=== PATIENT | male | born 1970 | race Caucasian/White ===

== ENCOUNTER 2016-07-03 07:11 | Observation (INO) ==
[2016-07-03] MEDS ORDERED: ONDANSETRON 4 MG/2 ML VIAL IV STA (07:45)
[2016-07-03] MEDS ORDERED: ASPIRIN 325 MG TABLET PO STA (07:45)
[2016-07-03] MEDS ORDERED: NITROGLYCERIN SL 0.4 MG TABLET SL PRN (07:45)
[2016-07-03] MEDS ORDERED: NITROGLYCERIN 2% OINT 1 INCH/GM PACK TOP STA (07:45)
[2016-07-03] MEDS ORDERED: MORPHINE 2 MG/1 ML SYRINGE IV STA (07:45)
[2016-07-03] MEDS ORDERED: ENOXAPARIN 100 MG/ML SYRINGE SUBCUT STA (07:45)
--- NOTE | 2016-07-03 07:53 | Emergency Department Note ---
Arrival - Arrival Chief Complaint: Chest Pain Stated Complaint: CHEST PAINS ED Nursing Triage Note: pain in left side of chest with numbness down his left shoulder and arm for two weeks. took two ntg this am without relief. Mode of Arrival: Ambulatory Limitations: No Limitations Source: Patient, RN Notes Reviewed Time Seen by Provider: 07/03/16 07:38 - History of Present Illness HPI Narrative: Patient is a 46-year-old white male with a known history of coronary artery disease who presents today with a 1-2 day history of worsening substernal chest pain radiating to the left arm. Patient states his pain has been going on to a lesser degree for some 2 weeks. He does have associated diaphoresis and nausea associated with this chest pain. Pain is not necessarily associated with exertion. Patient is undergone multiple stent placements in [place]. He states that he is on aspirin and Plavix. He states that he has been compliant with his medications. He continues to smoke cigarettes at least a pack a day. He denies hyperlipidemia, diabetes mellitus, or hypertension. His pain is described as a same pain that he experienced prior to his most recent stent. Pain does radiate to his left arm. Onset (ago): week(s) (2) Consistency: intermittent Severity: moderate Allergies/Adverse Reactions: Allergies Allergy/AdvReac Type Severity Reaction Status Date / Time Sulfa (Sulfonamide Allergy ANAPHYLAXIS Verified 04/26/16 05:43 Antibiotics) Home Medications: Home Medications Medication Instructions Recorded Confirmed Type Aspirin [Ecotrin] 81 mg PO DAILY 04/26/16 04/26/16 History Clopidogrel [Plavix] 75 mg PO DAILY 04/26/16 04/26/16 History Ondansetron [Ondansetron Odt] 4 mg PO RT Q6H PRN #20 tab.rapdis 04/26/16 Rx Review of System - Review of System 12 point system: reviewed and no additional remarkable complaints except as stated - Review of System Constitutional: Absent: chills, fever Respiratory: Absent: cough Cardiovascular: Present: chest pain, dyspnea on exertion. Absent: palpitations , orthopnea, edema, syncope Gastrointestinal: Present: abdominal pain, nausea. Absent: vomiting, hematemesis, melena, hematochezia Medical,Surgical,& Family Hx - Medical History Cardio: History of: CAD, [place] - Surgical History Cardiac Surgeries: Sugical HX of: Cardiac Catheterization - Social History Smoking Status: Current every day smoker (1 pack per day) Have you smoked in the last 12 months: Yes Time spent discussing smoking cessation with patient: 3 to 10 minutes Lives With:: Significant Other Functional capacity: independent ambulation Exam Vital Signs: Vital Signs Temperature 97.8 F 07/03/16 07:14 Pulse Rate 82 07/03/16 07:14 Respiratory Rate 18 07/03/16 08:43 Blood Pressure 150/96 07/03/16 07:14 O2 Sat by Pulse Oximetry 100 07/03/16 07:14 GENERAL: This is a well-nourished well-developed white male, smells of cigarettes, in no apparent distress. VITAL SIGNS: Reviewed HEENT: Head is atraumatic and normocephalic. Pupils are equal round react to light. Extraocular movements are intact. Oropharynx is benign with moist mucous membranes. NECK: Neck is soft and supple without tenderness. There are no masses. There is no lymphadenopathy. LUNGS: Lungs are clear to auscultation. Chest rises symmetrically. There is no chest wall tenderness. CV: Heart is regular rate and rhythm without murmurs rubs or gallops. ABDOMEN: Abdomen is soft, nontender to palpation. There are no abdominal abnormal masses palpated. There is no organomegaly. Bowel sounds are present and active. SKIN: Skin is warm and dry. No rash. EXTREMITIES: Patient has full range of motion without tenderness. There is no pedal edema. NEUROLOGIC: Awake alert and oriented 4. Cranial nerves II through XII are grossly intact. Motor is 5 over 5 in all extremities bilaterally. Course - Consultations Consultation #1: Discussed with Dr. Tejeda. Patient will be admitted to their service. Time: 09:18 Results - Labs CBC & BMP: 07/03/16 07:51 07/03/16 07:51 Lab Results: I have reviewed the patients labs Labs: Laboratory Tests 07/03/16 07:51 INR 1.0 Laboratory Tests 07/03/16 07:51 Troponin I < 0.015 - EKG EKG results: interpreted by ERMD - Impressions EKG: Normal sinus rhythm with a rate of 69, nonspecific ST-T wave changes, incomplete right bundle branch block. - Diagnostic Findings Procedure: Chest x-ray: image reviewed by me (Hyperinflation bilaterally. No infiltrates, no cardiomegaly, no pleural effusions.) Disposition Clinical Impression: Chest pain, Coronary artery disease, Nicotine addiction Case discussed with: patient Disposition: Still a Patient Condition: Stable
[2016-07-03] MEDS ORDERED: ENOXAPARIN 80 MG/0.8 ML SYRINGE SUBCUT ONE (07:59)
[2016-07-03] MEDS ORDERED: ONDANSETRON 4 MG/2 ML VIAL ONE (07:59)
[2016-07-03] MEDS ORDERED: MORPHINE 2 MG/1 ML SYRINGE ONE (07:59)
[2016-07-03] MEDS ORDERED: ASPIRIN 325 MG TABLET ONE (07:59)
[2016-07-03] MEDS ORDERED: NITROGLYCERIN 2% OINT 1 INCH/GM PACK TOP ONE (07:59)
[2016-07-03 08:14] LABS: Basophils # 0.1 10*3/uL (0.0-0.2); Eosinophils # 0.2 10*3/uL (0.0-0.87); Eosinophils % 2.8 % (0.00-10.9); Hematocrit 43.2 VOL% (42.0-52.0); Immature Granulocytes % 0.9 %; Immature Granulocytes Absolute 0.06 #; Lymphocytes % 28.9 % (21.2-54.2); Mean Corpuscular HGB Conc 34.7 GM/DL (32-36); Mean Corpuscular Hemoglobin 31 PG (27-34); Monocytes # 0.7 10*3/uL (0.11-0.8); Monocytes % 9.8 % (1.7-12.7); Neutrophils # 3.9 10*3/uL (1.4-7.4); Neutrophils % 56.6 % (38.7-73.9); Platelet Count 283 T/CUMM (130-400); Red Cell Distribution Width 13.6 % (9.3-17.3); White Blood Count 6.8 T/CUMM (4-12)
[2016-07-03 08:23] LABS: PT Patient Result 10.5 SECS; Partial Thromboplastin Time 28.3 SECS (0-40)
--- NOTE | 2016-07-03 08:28 | XRay Report ---
XR chest 2V Indication: Chest pain Comparison: Chest x-ray dated November 28, 2007 Technique: Frontal and lateral views of the chest Findings: Heart size appears within normal limits. No focal consolidation, pleural effusion, or pneumothorax. Osseous and surrounding soft tissue structures appear grossly unchanged. Old deformity of the distal right clavicle with superior apex angulation. IMPRESSION: No acute cardiopulmonary process demonstrated. PROCEDURE INTERPRETED AT [facility] DEPARTMENT OF RADIOLOGY Final Report Signed by: Dr Humphrey Allen
[2016-07-03 08:49] LABS: Albumin 4.4 G/DL (3.4-5.0); Bilirubin,Total 0.7 MG/DL (0.2-1.0); Calcium 9.3 MG/DL (8.5-10.1); Osmolality,Calculated 279.1 MOS/KG (273-304); Potassium 4.1 MMOL/L (3.5-5.1); Total Protein 7.6 G/DL (6.4-8.3)
--- NOTE | 2016-07-03 09:43 | EKG Report ---
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
[2016-07-03] MEDS ORDERED: MAGNESIUM SULF RIDER 4 GM in PREMIX 1 EACH IV PRN (10:32)
[2016-07-03] MEDS ORDERED: BISACODYL 5 MG TABLET PO PRN (10:32)
[2016-07-03] MEDS ORDERED: POTASSIUM CHLORIDE 20 MEQ TABLET PO PRN (10:32)
[2016-07-03] MEDS ORDERED: MAGNESIUM SULF RIDER 2 GM in PREMIX 1 EACH IV PRN ×2 (10:32→19:15)
[2016-07-03] MEDS ORDERED: ONDANSETRON 4 MG/2 ML VIAL IV PRN (10:32)
[2016-07-03] MEDS ORDERED: ZALEPLON 5 MG CAPSULE PO PRN (10:32)
[2016-07-03] MEDS ORDERED: ACETAMINOPHEN 325 MG TABLET PO PRN (10:32)
[2016-07-03] MEDS ORDERED: NICOTINE 21 MG/24 HR PATCH TRANSDERM PRN (10:32)
--- NOTE | 2016-07-03 11:13 | Cardiology History & Physical ---
Assessment and Plan - Time spent with patient Time spent with patient: Greater than 30 minutes (Due to assessment, plan, and documentation) Time spent discussing smoking cessation with patient: 3 to 10 minutes (1) Chest pain Status: Acute Assessment and plan: 46 y/o WM c hx of CAD, HLD, tobacco and cannabis abuse. Previous hx of cocaine use. Not currently on PPI, statin, BB, MAJOR or ARB. -Chest pain - Admit to telemetry unit. Will plan for stress testing today. Keep NPO for now. -Continue Lovenox BID. -Hx CAD - Will start statin and beta arjun. Check FLP in AM. -Drug abuse- Check UDS. -Obtain previous records from machine adjuster leader Dr. Razo at [facility] in [place], [place]. Further plan and addendum to follow by Dr. Tejeda. Current Visit: Yes (2) Coronary artery disease Status: Chronic Current Visit: Yes (3) Dyslipidemia Status: Chronic Current Visit: Yes (4) Old anteroseptal myocardial infarction Status: Chronic Current Visit: Yes (5) S/P coronary artery stent placement Status: Chronic Current Visit: Yes (6) Cannabis abuse Status: Chronic Current Visit: Yes (7) History of cocaine use Status: Chronic Current Visit: Yes (8) Nicotine addiction Status: Chronic Current Visit: Yes History of Present Illness Chief complaint: Chest pain History of present illness: TESTER COMPRESSED GASES: DR. RAZO AT [facility] IN [place], [place] Mr. Gamino has been seen in the emergency department by myself and Dr. Tejeda. Mr. Gamino is a 46 year old male who is routinely followed by Dr. Razo, a machine adjuster leader at [facility] in [place]. he has a history of coronary artery disease hyperlipidemia, gastroesophageal reflux disease, tobacco abuse, cannabis use, prior cocaine use. He has been smoking since age 12. He reports he has cut down from 3 packs per day to 1 pack per day. He has no history of hypertension, diabetes, stroke, or TIA. He does report chronic sinus issues with recent sinus infection within the past week. He presented to the emergency room today with complaints of chest pain that has been ongoing for the past 2-3 weeks, with more frequent and intense episodes. He tells me he has had intermittent episodes of chest discomfort that lasts from a few seconds to a few minutes over the past several weeks. This pain is located in his left chest wall and radiates to his left axilla and will go into the middle of his back. He says he notices these episodes mostly when he is exerting himself at work, but will occasionally notice them at rest. He reports he does not have these episodes every day but will sometimes have 3-4 episodes on the days that these occur. He reports this is the same feeling he has had every time he has had stents placed. He can identify no aggravating or alleviating factors. He reports he did take 2 nitroglycerin this morning prior to arrival at the hospital but this did not help very much. He does report having a headache from the nitroglycerin. He has associated symptoms of shortness of breath, diaphoresis, and nausea. He notes he has recently had nausea separately from his episodes of chest pain, especially in the morning with associated diarrhea. He reports occasionally feeling dizzy when his episodes of chest pain occur. He denies palpitations, lightheadedness. His girlfriend is at the bedside and reports approximately 1 month ago he "passed out" for a couple seconds prior to getting in the shower. She tells me she caught him before he fell to the ground. He denies loss of bowel or bladder function and reports he did not injure himself or go to the hospital when this occurred. Mr. Gamino is status post anterior septal wall [place] May 23, 2005 in [place]. At that time he underwent stenting of the LAD with a 3.5 x 20 mm Cypher stent and stenting of the second diagonal with a 3 x 13 mm Cypher stent on May 24, 2015. She tells me that 11 months after that episode he went to the hospital at [place] and required an additional stent by Dr. Mcleod. He reports his last heart cath was in November 2015 and he tells me that they had to open up a stent that was previously placed. We will try to obtain these records. Dr. Tejeda to follow with further recommendations. Home Medications Medication Instructions Recorded Confirmed Type Aspirin [Ecotrin] 81 mg PO DAILY 04/26/16 04/26/16 History Clopidogrel [Plavix] 75 mg PO DAILY 04/26/16 04/26/16 History Ondansetron [Ondansetron Odt] 4 mg PO RT Q6H PRN #20 tab.rapdis 04/26/16 Rx Allergies Allergy/AdvReac Type Severity Reaction Status Date / Time Sulfa (Sulfonamide Allergy ANAPHYLAXIS Verified 04/26/16 05:43 Antibiotics) Review of systems: - Constitutional: Present:fever(s), As per HPI. Absent: anorexia, chills, daytime sleepiness, excessive sweating, frequent falls, headache(s), increased appetite, lethargy, malaise, night sweats, stops breathing during sleep, weakness, weight gain, weight loss, fatigue. - EENT Eyes: Present: As per HPI. Absent: blurry vision, diplopia, loss of vision Ears: Present: As per HPI. Absent: decreased hearing, ear discharge, ear pain Nose, mouth and throat: Present: dysphagia, nasal congestion, As per HPI. Absent : epistaxis, headache(s), hoarseness, lip swelling, neck mass, neck pain, sinus pressure, sore throat, throat swelling, tongue swelling, vertigo - Cardiovascular: Present: chest pain at rest, chest pain with activity, dyspnea , dyspnea on exertion, as per HPI. Absent: edema, claudication, diaphoresis, radiating jaw, neck or arm pain, lightheadedness, orthopnea, palpitations, PND - Respiratory: Present: dyspnea, dyspnea on exertion, snoring, paroxysmal nocturnal dyspnea, as per HPI. Absent: cough, hemoptysis, wheezing, pain on inspiration - Gastrointestinal: Present: nausea, diarrhea, heartburn, As per HPI. Absent: abdominal pain, bloating, change in bowel habits, constipation, hematemesis, hematochezia, loose stools, melena, vomiting - Genitourinary: Present: As per HPI. Absent: difficulty urinating, dysuria, flank pain, hematuria, nocturia, urinary frequency, urinary incontinence - Musculoskeletal: Present: back pain, As per HPI. Absent: arthralgias, joint swelling, limited range of motion, muscle cramps, muscle weakness, myalgias - Neurological: Present: dizziness, syncope, As per HPI. Absent: abnormal gait, abnormal speech, behavioral changes, confusion, convulsions, disequilibrium, focal weakness, frequent falls, headache(s), memory loss, numbness, paresthesias , radicular pain, tremor(s) - Psychiatric: Present: As per HPI. Absent: anxiety, confusion, depression, panic attacks - Endocrine: Present: As per HPI. Absent: cold intolerance, fatigue, heat intolerance, polydipsia, polyphagia - Hematologic/Lymphatic: Present: As per HPI. Absent: easy bleeding, easy bruising, lymphadenopathy Medical,Surgical,& Family Hx - Medical History Cardio: History of: CAD, [place] Psychological: History of: Psychiatric/Substance Abuse Tx (History of cocaine and cannabis use) Endocrine: History of: Dyslipidemia - Surgical History Cardiac Surgeries: Sugical HX of: Cardiac Catheterization - Family History Family History: Reports;: Family Diabetes, Family Hypertension - Social History Smoking Status: Current every day smoker (1 pack per day) Have you smoked in the last 12 months: Yes Time spent discussing smoking cessation with patient: 3 to 10 minutes Frequency of Alcohol Use: Frequently (Drinks 2 beers daily) Type of Drug Use: Cocaine (History of cocaine use.), Marijuana (Smokes 1 joint daily) Marital Status: Single Lives With:: Significant Other Functional capacity: independent ambulation Cardiology Physical Exam - Constitutional Vitals: Vital Signs Temp Pulse Resp BP Pulse Ox 97.8 F 74 18 124/90 98 07/03/16 07:14 07/03/16 10:30 07/03/16 10:30 07/03/16 10:30 07/03/16 10:30 Intake and Output 07/02/16 07/03/16 07/03/16 22:59 06:59 14:59 Other: Weight 175 lb Patient Weight 07/04/16 06:59 Weight 175 lb Exam: General appearance: Pleasant and cooperative. Normal weight, no acute distress. - Head Head exam: Present: normal inspection, normocephalic, atraumatic. Absent: hematoma, laceration - Eye Eye exam: Present: EOMI. Absent: conjunctival injection, nystagmus, periorbital swelling, scleral icterus, laceration to eyelids Pupils: Present: PERRL. Absent: constricted, dilated, fixed, irregular, unequal - ENT ENT exam: Present: normal exam, normal external ear exam - Neck Neck exam: Present: normal inspection. Absent: lymphadenopathy, meningismus, tenderness, thyromegaly - Respiratory Respiratory exam: Present: clear to auscultation bilaterally. Absent: accessory muscle use, chest wall tenderness, no rales, rhonchi, or wheezes. - Cardiovascular Cardiovascular exam: Present: regular rate and rhythm. Absent: carotid bruit, gallop, JVD, rubs, murmur - GI/Abdominal GI/Abdominal exam: Present: normal bowel sounds, soft. Absent: distended, firm , guarding, hernia, mass, tenderness, rebound. - Extremities Exam Extremities exam: Present: normal inspection, normal capillary refill. Upper extremity pulses 2+. Lower extremity pulses 2+. Absent: calf tenderness, edema - Back Exam Back exam: Present: normal inspection. Absent: muscle spasm, vertebral tenderness - Neurological Exam Neurological exam: Present: alert, oriented X3, grossly intact without resting or essential tremor - Psychiatric Psychiatric exam: Present: normal affect, normal mood - Skin Skin exam: Present: normal color, warm, dry, intact. Absent: cyanosis, diaphoretic, rash, urticaria Result/EKG - Labs CBC & BMP: 07/03/16 07:51 07/03/16 07:51 Lab Results: I have reviewed the past 24 hour labs Labs: Laboratory Results - last 24 hr 07/03/16 07/03/16 07/03/16 07:51 07:51 07:51 WBC 6.8 RBC 4.80 Hgb 15.0 Hct 43.2 MCV 90.0 MCH 31 MCHC 34.7 RDW 13.6 Plt Count 283 MPV 10.0 Neut % (Auto) 56.6 Lymph % (Auto) 28.9 [place] % (Auto) 9.8 Eos % (Auto) 2.8 Baso % (Auto) 1.0 H Neut # (Auto) 3.9 Lymph # (Auto) 2.0 [place] # (Auto) 0.7 Eos # (Auto) 0.2 Baso # (Auto) 0.1 Immature Gran % 0.9 Nucleated RBC % 0.0 Immature Gran # 0.06 Nucleated RBCs # 0.00 INR 1.0 PT Patient/Control Mix 10.5 Circ Anticoag PTT 28.3 Sodium 142 Potassium 4.1 Chloride 109 H Carbon Dioxide 27 Anion Gap 10.1 BUN 6 L Creatinine 1.10 GFR Calculation 92 BUN/Creatinine Ratio 5.00 L Glucose 88 Calculated Osmolality 279.1 Calcium 9.3 Total Bilirubin 0.70 AST 15 ALT 21 Alkaline Phosphatase 69 Troponin I Total Protein 7.6 Albumin 4.4 Globulin 3.2 Albumin/Globulin Ratio 1.3 07/03/16 07:51 WBC RBC Hgb Hct MCV MCH MCHC RDW Plt Count MPV Neut % (Auto) Lymph % (Auto) [place] % (Auto) Eos % (Auto) Baso % (Auto) Neut # (Auto) Lymph # (Auto) [place] # (Auto) Eos # (Auto) Baso # (Auto) Immature Gran % Nucleated RBC % Immature Gran # Nucleated RBCs # INR PT Patient/Control Mix Circ Anticoag PTT Sodium Potassium Chloride Carbon Dioxide Anion Gap BUN Creatinine GFR Calculation BUN/Creatinine Ratio Glucose Calculated Osmolality Calcium Total Bilirubin AST ALT Alkaline Phosphatase Troponin I < 0.015 Total Protein Albumin Globulin Albumin/Globulin Ratio - Diagnostic Findings Procedure: Chest x-ray: report reviewed by me (No acute cardiopulmonary process demonstrated.) - EKG EKG results: interpreted by me, sinus rhythm
--- NOTE | 2016-07-03 12:37 | Event Note ---
Patient underwent nuclear stress testing. He achieved 98% of predicted target heart rate without difficulty. No chest pain, heaviness or tightness. No arrhythmia noted. [address] depression noted in V6 when he achieved 98% of predicted target heart rate (172 bpm). Hypertension prior to and during the procedure. Improved at rest to 170/98. He has not had his medications today. Now, to nuclear medicine for completion of final scan. Dr. Salinas to read, interpreted and advise. Having formed the patient he should not eat or drink until we have final results should the patient need a cardiac catheterization he may be eligible for scheduling for today. If his films are normal, he may eat later this afternoon
--- NOTE | 2016-07-03 13:56 | EKG Report ---
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
[2016-07-03] MEDS: CLOPIDOGREL 75 MG TABLET PO SCH (14:17)
[2016-07-03] MEDS: PANTOPRAZOLE 40 MG TABLET PO SCH (15:55)
[2016-07-03] MEDS: METOPROLOL TARTRATE 25 MG TABLET PO SCH ×2 (15:56→22:05)
[2016-07-03] MEDS ORDERED: ALPRAZolam 0.5 MG TABLET PO PRN (17:35)
[2016-07-03 18:11] LABS: Barbiturates Screen,Urine Negative (Negative); Benzodiazepines Screen,Urine Negative (Negative); Cannabinoid Screen,Urine Positive (Negative); Opiate Screen,Urine Positive (Negative); Phencyclidine Screen,Urine Negative (Negative)
[2016-07-03] MEDS ORDERED: POTASSIUM CHLORIDE RIDER 10 MEQ in PREMIX 1 EACH IV PRN (19:15)
--- NOTE | 2016-07-03 19:19 | History and Physical Update ---
Sedation H&P Update - History and Physical H&P was reviewed, the patient examined and there: are no changes in the patients condition since last H&P was completed. - Dictation Physical: refer to H&P completed by admitting physician - Physical Exam Mental Status: alert and oriented Heart: regular rate and rhythm Lung: clear to auscultation Abdomen: within normal limits Vitals: within normal limits - Sedation Plan for Sedation: minimal Patient Consent: Procedure disscussed with patient and patinet has consented. ( Left heart cath and possible PTCA or stent were discussed with the patient. The risk of the procedure include but are not limited to a small risk of injury to the vessel, abnormal heart rhythm, stroke, heart attack, need for emergent surgery, contrast reaction, restenosis, or . The patient voices understanding, agrees with the plan, and desires to proceed with the heart catheterization.), Risks and benefits were discussed with patient,including infection,, bleeding,injury to surrounding structures, seizure, temporary nerve , Patient understands and accepts potential risks/benefits and agrees to, proceed. ASA Class: II Airway Assessment: Class II: Soft palate, uvula, fauces visible
--- NOTE | 2016-07-03 20:35 | Nuclear Medicine Report ---
EXERCISE TREADMILL STRESS TEST REPORT Stress test interpreted by Dr. Pop Tejeda. INDICATION: Chest pain, prior [place], PCI. PROCEDURE: At rest, 10 mCi of 99Technetium labeled Sestamibi was injected and rest images were obtained. The patient then exercised according to the Arvind treadmill stress protocol. At peak stress, 30 mCi of 99Technetium labeled Sestamibi was injected and post stress images were reviewed. FINDINGS: At rest, the heart rate is 58 beats per minute, sinus; blood pressure is 125/85 mmHg. QRS in V1 through V3. No significant ST-T changes. The patient exercised for 10 minutes 17 seconds, achieving a peak heart rate of 172 beats per minute, 98% of the predicted maximum heart rate, at 10.9 METS. The blood pressure gordo to 198/98 mmHg. At peak stress, ascending no significant ST depression was noted, with few PVCs. There was no chest pain. Rest and post stress gated and perfusion images were reviewed. There are no significant motion artifacts. The end-diastolic volume is 164 cc, the end- systolic volume is 93 cc. The calculated left ventricular ejection fraction is 40%. There is borderline diffuse hypokinesis, with more prominent hypokinesia. Perfusion images showed a moderate sized area in the anterior/apical region of mildly decreased activity at rest, with moderately decreased activity post stress. This is consistent with old myocardial disease with superimposed ischemia. CONCLUSIONS: 1. CLINICALLY AND ELECTRICALLY NEGATIVE MAXIMUM STRESS TEST. THE ARVIND TREADMILL STRESS SCORE IS 10. 2. MILDLY DILATED LEFT VENTRICLE WITH MILDLY DEPRESSED SYSTOLIC FUNCTION, WITH ANTERIOR/APICAL MYOCARDIAL DISEASE, WITH SUPERIMPOSED ISCHEMIA. 3. THIS IS A MODERATE RISK TEST. Procedure performed and interpreted at [facility] Department of Radiology. [facility]
[2016-07-03] MEDS ORDERED: ATORVASTATIN 40 MG TABLET PO SCH (21:00)
[2016-07-03] MEDS: ENOXAPARIN 80 MG/0.8 ML SYRINGE SUBCUT SCH (22:06)
[2016-07-03] MEDS: SODIUM CHLORIDE 0.9% 1,000 ML IV SCH (22:16)
[2016-07-04 05:38] LABS: Basophils # 0.1 10*3/uL (0.0-0.2); Basophils % 0.9 % (0.0-0.8); Eosinophils # 0.3 10*3/uL (0.0-0.87); Eosinophils % 3.3 % (0.00-10.9); Hematocrit 41.7 VOL% (42.0-52.0); Hemoglobin 14.7 GM/DL (14.0-18.0); Immature Granulocytes % 1.1 %; Immature Granulocytes Absolute 0.09 #; Lymphocytes # 3.2 10*3/uL (1.4-4.0); Lymphocytes % 38.8 % (21.2-54.2); Mean Corpuscular HGB Conc 35.3 GM/DL (32-36); Mean Corpuscular Hemoglobin 31 PG (27-34); Mean Corpuscular Volume 87.8 FL (87-102); Mean Platelet Volume 10.5 FL (9.6-12.0); Monocytes # 0.7 10*3/uL (0.11-0.8); Neutrophils # 3.9 10*3/uL (1.4-7.4); Neutrophils % 47.9 % (38.7-73.9); Platelet Count 294 T/CUMM (130-400); Red Blood Count 4.75 MC/CUMM (3.8-5.5); Red Cell Distribution Width 13.6 % (9.3-17.3); White Blood Count 8.2 T/CUMM (4-12)
[2016-07-04] MEDS ORDERED: DIAZEPAM 5 MG TABLET PO ONE ×2 (06:00→08:00)
[2016-07-04] MEDS ORDERED: diphenhydrAMINE CAP 25 MG CAPSULE PO ONE ×2 (06:00→08:00)
[2016-07-04 06:06] LABS: Calcium 8.7 MG/DL (8.5-10.1); Magnesium 1.9 MG/DL (1.8-2.4); Osmolality,Calculated 281.1 MOS/KG (273-304); Potassium 4.3 MMOL/L (3.5-5.1); Risk Ratio 3.89
[2016-07-04] MEDS: PANTOPRAZOLE 40 MG TABLET PO SCH (07:59)
[2016-07-04] MEDS: CLOPIDOGREL 75 MG TABLET PO SCH (07:59)
[2016-07-04] MEDS: METOPROLOL TARTRATE 25 MG TABLET PO SCH (08:00)
[2016-07-04] MEDS: ENOXAPARIN 80 MG/0.8 ML SYRINGE SUBCUT SCH (08:02)
[2016-07-04] MEDS: SODIUM CHLORIDE 0.9% 1,000 ML IV SCH (08:03)
[2016-07-04] MEDS ORDERED: LIDOCAINE 1% 20 ML VIAL ONE (08:23)
[2016-07-04] MEDS ORDERED: MEPERIDINE 25 MG/1 ML VIAL ONE (08:43)
[2016-07-04] MEDS ORDERED: MIDAZOLAM 2 MG/2 ML VIAL ONE (08:43)
[2016-07-04] MEDS ORDERED: diphenhydrAMINE 50 MG/1 ML VIAL ONE (08:50)
[2016-07-04] MEDS ORDERED: methylPREDNISolone SOD SUC 125 MG/2 ML VIAL ONE (08:50)
[2016-07-04] MEDS ORDERED: FAMOTIDINE 20 MG/2 ML VIAL IV ONE (08:56)
[2016-07-04] MEDS ORDERED: ASPIRIN EC 81 MG TABLET PO SCH (09:00)
[2016-07-04] MEDS ORDERED: SODIUM CHLORIDE 0.9% 1,000 ML IV SCH (09:47)
--- NOTE | 2016-07-04 09:52 | Operative Note ---
Date of procedure: 07/04/16 Procedure Preformed: Left heart cath Coronary angiography Left ventriculography Angio-Seal of the right femoral artery-successful Surgeon / Physician: Arsh Nelson Tooth Cutter Pinion: Latonia De La Cruz Post-op diagnosis: same (History of prior WA, prior coronary stent of the LAD, diagonal and then re-stent of the LAD in about 6. He presents with chest pain. He underwent stress testing and had evidence of some infarction some ischemia in the LAD territory. He is referred for diagnostic catheterization and possible intervention.) Findings: Impression: Occluded ostium of a diagonal of the LAD with BERNIE grade I collaterals, left to left-presumably, by the patient's history, this occurred back in 6 when the interventionalists at that time at [facility] stented across this diagonal to benefit the LAD but apparently did close off the diagonal; alternatively, it could have closed recently. There are some collaterals. Moderate disease of the proximal LAD just prior to the stent-30-40%-in some views a mach effect makes it appear worse but the best views showed no significant narrowing at that site Mild disease in circumflex and right coronary Widely patent LAD stent/stents--has appearance of some stents within the stent Moderately severe global left ventricular systolic dysfunction, LVEF is about 30 %. There is global hypokinesis, not one regional area which appears worse. 2-3+ LV enlargement Normal LVEDP, 9 mmHg Angio-Seal of the right femoral artery-successful Plan/recommendations: The patient will have risk factors optimized. The patient will be on antiplatelet medications to include aspirin indefinitely and Plavix for at least a year. It is apparent that he is ischemia seen on the treadmill/MPI is due to the occluded diagonal with collaterals. There probably is some scarring in that area, also. If his chest pain was at rest, it may or may not be related to this occluded diagonal, unless he occluded acutely. I will defer to Dr. Salinas regarding assessing the clinical scenario. Whatever the case, it is for medical therapy. With his LV systolic dysfunction, EF 30% and LV enlargement, I will change the metoprolol to low-dose carvedilol, which would be better for his LV systolic dysfunction, post WA. I will also add a low -dose of an MAJOR inhibitor. We will see how he tolerates these and adjust as tolerated. He is already on a statin, aspirin, and Plavix. Discussion was had with him about trying to taper discontinue smoking. He has cut down to less than 1 pack per day. I encouraged him to try to become nicotine free in the near future. Follow-up will be scheduled. Addenda: I saw the patient post-cath. the groin puncture site and distal pulse are stable. vital signs are stable and the patient will be observed closely overnight. Specimens: none sent Estimated blood loss: minimal Condition: stable Anesthesia: local, conscious sedation Disposition: floor
[2016-07-04] MEDS ORDERED: CARVEDILOL 6.25 MG TABLET PO SCH (10:00)
[2016-07-04] MEDS: CAPTOPRIL 6.25 MG TABLET PO SCH ×2 (10:33→15:40)
--- NOTE | 2016-07-04 13:01 | Cardiology Operative Report ---
Date of Procedure:: 07/04/16 Post-op diagnosis: same (History of prior AR, prior coronary stent of the LAD, diagonal and then re-stent of the LAD in about 6. He presents with chest pain. He underwent stress testing and had evidence of some infarction some ischemia in the LAD territory. He is referred for diagnostic catheterization and possible intervention.) Procedure: Date of procedure: 07/04/16 Procedure Preformed: Left heart cath Coronary angiography Left ventriculography Angio-Seal of the right femoral artery-successful Surgeon / Physician: Arsh Nelson Front Office Java Developer: Latonia De La Cruz Post-op diagnosis: same (History of prior AR, prior coronary stent of the LAD, diagonal and then re-stent of the LAD in about 6. He presents with chest pain. He underwent stress testing and had evidence of some infarction some ischemia in the LAD territory. He is referred for diagnostic catheterization and possible intervention.) procedure: The patient was prepped and draped in usual manner. Entered the right femoral artery via the Seldinger technique. I used a sheath and then used a JL4 and engaged left coronary. Multiple views were taken. I then exchanged for a JR4. Multiple views of the right coronary were taken. I then exchanged for an angled pigtail. I crossed the valve. Left ventricular end-diastolic pressures measured. Left ventriculography was done. Left ventricle pullback was done. The catheters were then removed from the patient. Please see the cath data sheets for the details of catheters used. Complications: None Hemodynamic data: LVEDP was 9 mmHg. Angiographic data: The left main coronary was large and had minimal luminal irregularities. The left anterior descending artery was large and had some proximal overlapping stents. There was also stent which appeared to go into a diagonal. This was flush occluded proximally at the ostium of the diagonal. Otherwise LAD stent had 10% residual disease. Possible stent there was a 30-40% eccentric narrowing. Otherwise her minimal luminal irregularities distally. The left circumflex system was moderate to large. there are minimal luminal irregularities in the circumflex The right coronary artery was small to medium in size, dominant vessel with the PDA. there were minimal luminal irregularities. PENA left ventriculography revealed abnormal global systolic function. Overall ejection fraction was about 30%. There was global hypokinesis. There was 2-3+ LV enlargement. There is no significant mitral regurgitation. Angiogram of the right femoral artery revealed the puncture site to be in a large vessel, above the bifurcation. It was suitable for Angio-Seal. Findings: Impression: Occluded ostium of a diagonal of the LAD with BERNIE grade I collaterals, left to left-presumably, by the patient's history, this occurred back in 6 when the interventionalists at that time at [place] stented across this diagonal to benefit the LAD but apparently did close off the diagonal; alternatively, it could have closed recently. There are some collaterals. Moderate disease of the proximal LAD just prior to the stent-30-40%-in some views a mach effect makes it appear worse but the best views showed no significant narrowing at that site Mild disease in circumflex and right coronary Widely patent LAD stent/stents--has appearance of some stents within the stent Moderately severe global left ventricular systolic dysfunction, LVEF is about 30 %. There is global hypokinesis, not one regional area which appears worse. 2-3+ LV enlargement Normal LVEDP, 9 mmHg Angio-Seal of the right femoral artery-successful Plan/recommendations: The patient will have risk factors optimized. The patient will be on antiplatelet medications to include aspirin indefinitely and Plavix for at least a year. It is apparent that he is ischemia seen on the treadmill/MPI is due to the occluded diagonal with collaterals. There probably is some scarring in that area, also. If his chest pain was at rest, it may or may not be related to this occluded diagonal, unless he occluded acutely. I will defer to Dr. Salinas regarding assessing the clinical scenario. Whatever the case, it is for medical therapy. With his LV systolic dysfunction, EF 30% and LV enlargement, I will change the metoprolol to low-dose carvedilol, which would be better for his LV systolic dysfunction, post AR. I will also add a low -dose of an MAJOR inhibitor. We will see how he tolerates these and adjust as tolerated. He is already on a statin, aspirin, and Plavix. Discussion was had with him about trying to taper discontinue smoking. He has cut down to less than 1 pack per day. I encouraged him to try to become nicotine free in the near future. Follow-up will be scheduled. Addenda: I saw the patient post-cath. the groin puncture site and distal pulse are stable. vital signs are stable and the patient will be observed closely overnight. Specimens: none sent Estimated blood loss: minimal Condition: stable Anesthesia: local, conscious sedation Disposition: floor Additional CC's: Pop Tejeda Anesthesia: local, minimal conscious sedation Surgeon / Physician: Arsh Nelson Front Office Java Developer: other Estimated blood loss: minimal Specimens: none sent Condition: stable Disposition: floor
[2016-07-04] MEDS ORDERED: HYDROmorphone 2 MG/1 ML VIAL IV PRN (14:07)
--- NOTE | 2016-07-04 16:13 | Discharge Summary ---
Hospital Course - Hospital Course Hospital Course: Mr. Gamino, 46-year-old male, was admitted through the emergency department at [facility] July 03, 2016. History of known coronary artery disease. He arrived with complaints of chest pain. His cardiac biomarkers were negative. He underwent Cardiolite stress testing which revealed abnormal results. Patient, he underwent catheterization followed by Dr. Nelson July 04, 2016 with the following impression noted: Impression: Occluded ostium of a diagonal of the LAD with BERNIE grade I collaterals, left to left-presumably, by the patient's history, this occurred back in when the interventionalists at that time at [place] stented across this diagonal to benefit the LAD but apparently did close off the diagonal; alternatively, it could have closed recently. There are some collaterals. Moderate disease of the proximal LAD just prior to the stent-30-40%-in some views a mach effect makes it appear worse but the best views showed no significant narrowing at that site Mild disease in circumflex and right coronary Widely patent LAD stent/stents--has appearance of some stents within the stent Moderately severe global left ventricular systolic dysfunction, LVEF is about 30 %. There is global hypokinesis, not one regional area which appears worse. 2-3+ LV enlargement Normal LVEDP, 9 mmHg Angio-Seal of the right femoral artery-successful Plan/recommendations: The patient will have risk factors optimized. The patient will be on antiplatelet medications to include aspirin indefinitely and Plavix for at least a year. It is apparent that he is ischemia seen on the treadmill/MPI is due to the occluded diagonal with collaterals. There probably is some scarring in that area, also. If his chest pain was at rest, it may or may not be related to this occluded diagonal, unless he occluded acutely. With his LV systolic dysfunction, EF 30% and LV enlargement, I will change the metoprolol to low-dose carvedilol, which would be better for his LV systolic dysfunction, post ME. I will also add a low-dose of an MAJOR inhibitor. We will see how he tolerates these and adjust as tolerated. He is already on a statin, aspirin, and Plavix. Discussion was had with him about trying to taper discontinue smoking, marijuana and all illicit drugs. He verbalized understanding. Also, patient may be a candidate for ICD implantation in his future. Unfortunately, he does not have insurance discussed the importance of obtaining insurance and/or disability benefits. Antibiotics have already started this process and oriented this at present. He is anxious for release home and he is being discharged home today in stable condition. Again, will maximize his medications and reevaluate with echocardiogram in 90 days. Patient has previously seen a physician in [place] for his cardiology needs but prefers to transfer to Dr. Tejeda's service here in [place]. I will arrange for a 2-3 week follow-up with Dr. Tejeda. Discharge medications will include the following Aspirin 81 mg orally daily Plavix 75 mgs orally daily Atorvastatin 40 mg orally each evening Coreg 3.125 mg orally twice daily Captopril 6.5 mg orally 3 times daily - Time spent with patient Time with patient DS: Greater than 30 minutes Time spent discussing smoking cessation with patient: more than 10 minutes Diagnosis - Discharge Diagnosis (1) Hypertension Status: Chronic (2) Ischemic cardiomyopathy Status: Chronic (3) Chest pain Status: Chronic (4) Cannabis abuse Status: Chronic (5) Coronary artery disease Status: Chronic (6) Dyslipidemia Status: Chronic (7) History of cocaine use Status: Chronic (8) Nicotine addiction Status: Chronic (9) Old anteroseptal myocardial infarction Status: Chronic (10) S/P coronary artery stent placement Status: Chronic Specialty Discharge - Follow Up or Referrals Follow up with: Pop Tejeda MD [Physician] - (2-3 weeks. EKG at visit. BMP, magnesium, CBC) Discharge Plan - Discharge Data Disposition: Disch To Home/Self Care Condition at Discharge: Stable Discharge Diet: heart healthy Activity: other (Post cath expectations) Hygiene: no restrictions Weight Bearing at Discharge: other (Post cath expectations) Driving: other (Post cath expectations) Contact your physician if you experience:: fever over 101, Difficulty voiding, Redness or swelling, Nausea/Vomiting, Shortness of breath, Bleeding, pain uncontrolled by pain medications - Discharge Medications New Captopril [Capoten] 12.5 mg PO TID #45 tablet Nicotine 21 mg/24 Hr Patch [Nicoderm CQ 21 mg/24 hr Patch] 1 patch TRANSDERM DAILY PRN #30 patch PRN Reason: Nicotine Cravings Atorvastatin [Lipitor] 40 mg PO BEDTIME #30 tablet Carvedilol [Coreg] 3.125 mg PO BID #60 tablet Continue Clopidogrel [Plavix] 75 mg PO DAILY Aspirin [Ecotrin] 81 mg PO DAILY - Follow Up or Referral - Forms/Instructions Instructions: Left Heart Catheterization (DC), Heart Healthy Diet (GEN), Cigarette Smoking and Your Health (GEN), Coronary Artery Disease, Ham Pumper (GEN), How to Stop Smoking, Ham Pumper (GEN) Exam - Constitutional Vitals: Period Temp Pulse Resp BP Sys/Buchanan Pulse Ox Last 24 Hr 97.3 F-98.4 F 46-75 12-20 99-150/57-98 97-99 Exam: General: [Appears well with no apparent distress.] [Pleasant and cooperative. ] [Appears comfortable.] HEENT: [PERRL, normocephalic, atraumatic. Mucous membranes moist. No jaundice noted. Conjunctiva moist and clear, sclerae anicteric] Neck: No JVD/HJR, no thyromegaly or lymphadenopathy noted. No carotid bruit appreciated Cardiac: [Regular rate and rhythm.] [No murmur rub or gallop.] Lungs: [Clear to auscultation without accessory muscle use to assist the respiratory pattern.] Not requiring oxygen Abdomen: Soft, bowel sounds normoactive. Nontender and nondistended. No abdominal bruit or thrill noted. No masses noted. Musculoskeletal: No fluid collection. Decreased range of motion is noted. Extremities: Right groin reveals no evidence of hematoma or bruit. No clubbing , cyanosis noted. [ No edema noted.] Upper extremity pulses 2+. Lower extremity pulses 2+. Capillary refill less than 3 seconds. Skin: No unusual lesions or rashes. No skin breakdown appreciated. Neuro: Awake, alert and oriented 3. Moves all extremities well without hemiparesis or paralysis. No essential tremor is appreciated. Discharge Results Procedures and tests throughout hospitalization: Pending Orders 07/04/16 06:58 CL heart Routine 07/05/16 04:00 Basic Metabolic Panel IN AM Comp Blood Count Auto Diff IN AM Magnesium IN AM 07/06/16 04:00 Basic Metabolic Panel IN AM Magnesium IN AM Labs on day of discharge: Labs from last 24 hours 07/04/16 07/04/16 07/03/16 04:53 04:53 Unknown WBC 8.2 RBC 4.75 Hgb 14.7 Hct 41.7 L MCV 87.8 MCH 31 MCHC 35.3 RDW 13.6 Plt Count 294 MPV 10.5 Neut % (Auto) 47.9 Lymph % (Auto) 38.8 [place] % (Auto) 8.0 Eos % (Auto) 3.3 Baso % (Auto) 0.9 H Neut # (Auto) 3.9 Lymph # (Auto) 3.2 [place] # (Auto) 0.7 Eos # (Auto) 0.3 Baso # (Auto) 0.1 Immature Gran % 1.1 Nucleated RBC % 0.0 Immature Gran # 0.09 Nucleated RBCs # 0.00 Sodium 142 Potassium 4.3 Chloride 108 H Carbon Dioxide 25 Anion Gap 13.3 BUN 10 Creatinine 1.00 GFR Calculation 103 BUN/Creatinine Ratio 10.00 Glucose 98 Calculated Osmolality 281.1 Calcium 8.7 Magnesium 1.9 Triglycerides 260 H Cholesterol 218 H LDL Cholesterol 128.0 VLDL Cholesterol 52.0 HDL Cholesterol 56 Heart Disease Risk Ratio 3.89 Urine Opiates Screen Positive H Ur Barbiturates Screen Negative Ur Phencyclidine Scrn Negative U Amphetamine/Methamph Negative U Benzodiazepines Scrn Negative U Cocaine Metab Screen Negative U Cannabinoids Screen Positive H - Imaging and Cardiology Cardiology Procedure: report reviewed by me Procedure: Chest x-ray: report reviewed by ut DS: Provider Date of admission: 07/03/16 10:31 Primary care physician: . No PCP Attending physician on admission: Pop Tejeda MD Consults: 07/03/16 10:32 Consult to Cardiac Rehabilitation [CONS] Routine Reason for Cardiac Rehabilitation: Risk Factor Modification 07/03/16 14:11 Consult to Pharmacy [CONS] Routine Reason for Pharmacy Consult: Adjust Meds Renal Funct Discharging clinician: Brooke Martinez NP Expected date of discharge: 07/04/16
[2016-07-04 16:58] VITALS: BP 116/76
[2016-07-04] MEDS ORDERED: CARVEDILOL 3.125 MG TABLET PO SCH (21:00)
== END 2016-07-04 17:23 | disposition home or self-care (01) ==
LOC: N.ED 07:11 → N.EDINP 07:11 → N.TELES 10:40
PROVIDERS: ADMIT Internal Medicine Clinical Cardiac Electrophysiology; ATTEND Internal Medicine Clinical Cardiac Electrophysiology
PROC: CLCCHCL (ICD-10-PCS; 2016-07-04 09:15)

== ENCOUNTER 2016-11-11 11:21 | Observation (INO) ==
[2016-11-11] MEDS ORDERED: ONDANSETRON 4 MG/2 ML VIAL IV STA ×2 (11:48→11:55)
[2016-11-11] MEDS ORDERED: ENOXAPARIN 100 MG/ML SYRINGE SUBCUT STA (11:48)
[2016-11-11] MEDS ORDERED: ASPIRIN 325 MG TABLET PO STA (11:48)
[2016-11-11] MEDS ORDERED: MORPHINE 2 MG/1 ML SYRINGE IV STA (11:54)
[2016-11-11] MEDS ORDERED: NITROGLYCERIN 2% OINT 1 INCH/GM PACK TOP STA (11:54)
[2016-11-11] MEDS ORDERED: NITROGLYCERIN 2% OINT 1 INCH/GM PACK TOP ONE (11:59)
[2016-11-11] MEDS ORDERED: ONDANSETRON 4 MG/2 ML VIAL ONE (11:59)
[2016-11-11] MEDS ORDERED: ENOXAPARIN 100 MG/ML SYRINGE SUBCUT ONE (11:59)
--- NOTE | 2016-11-11 11:59 | EKG Report ---
Stationary ECG Study [facility] ER Test Date: 11/11/2016 11:24:53 AM Pat Name: ELYSSA MARIE Department: Room: Gender: M Etcher Electrolytic: : 1970 Requested by: Kwasi Murcia Order Number: [id number] Reading MD: PARRIS BRUCE Intervals [place] Rate: 70 P: 48 AR: 148 QRS: 49 QRSD: 107 T: 60 QT: 366 QTc: 387 Interpretive Statements SINUS RHYTHM SEPTAL INFARCT, POSSIBLY ACUTE Electronically Signed On 11-11-16 15:09:12 CDT by PARRIS BRUCE [email or web address]
--- NOTE | 2016-11-11 11:59 | Emergency Department Note ---
Omero Tariq Brooke, am scribing for, and in the presence of, Kwasi Aggarwal MD 11:57 . Alessia Tariq James D, MD, personally performed the services described in this documentation, ascribed by Joanna Jamil in my presence, and it is both accurate and complete . Arrival - Arrival Chief Complaint: Chest Pain Stated Complaint: chest pain/previous heart attack/stents ED Nursing Triage Note: pain in center of chest that started yesterday with numbness in his arms. moreso left arm. reports pain got worse while he was out in the heat working today. Mode of Arrival: Wheelchair Limitations: No Limitations Source: Patient, RN Notes Reviewed Time Seen by Provider: 11/11/16 11:47 - History of Present Illness HPI Narrative: Patient is a 46 year old male who presents to the ED with c/o chest pain that started yesterday. The chest pain is located in the middle of his chest and it is described as aching. Patient says the pain goes into the left arm and he is also having pain between the shoulder blades. Patient also complains of shortness of breath, nausea, and diaphoresis. He has PHMx of CAD, DC, dyslipidemia, GERD, and cocaine/marijuana abuse. His Equipment Man is Dr. Tejeda and his last appointment was October 25, 2016. Onset (ago): day(s) (2) Allergies/Adverse Reactions: Allergies Allergy/AdvReac Type Severity Reaction Status Date / Time Sulfa (Sulfonamide Allergy ANAPHYLAXIS Verified 04/26/16 05:43 Antibiotics) Home Medications: Home Medications Medication Instructions Recorded Confirmed Type Aspirin [Ecotrin] 81 mg PO DAILY 04/26/16 11/11/16 History Clopidogrel [Plavix] 75 mg PO DAILY 04/26/16 11/11/16 History Atorvastatin [Lipitor] 40 mg PO BEDTIME #30 tablet 07/04/16 11/11/16 Rx Captopril [Capoten] 12.5 mg PO TID #45 tablet 07/04/16 11/11/16 Rx Carvedilol [Coreg] 3.125 mg PO DAILY 11/11/16 11/11/16 History Review of System - Review of System 12 point system: reviewed and no additional remarkable complaints except as stated - Review of System Constitutional: Present: diaphoresis. Absent: fever Respiratory: Present: other (shortness of breath). Absent: respiratory distress Cardiovascular: Present: chest pain (center) Gastrointestinal: Present: nausea Musculoskeletal: Present: arm pain (left), back pain (between shoulder blades) Skin: Absent: rash Medical,Surgical,& Family Hx - Medical History Cardio: History of: CAD, DC Psychological: History of: Psychiatric/Substance Abuse Tx (History of cocaine and cannabis use) Endocrine: History of: Dyslipidemia Gastrointestinal: History of: GERD - Surgical History Cardiac Surgeries: Sugical HX of: Cardiac Catheterization - Family History Family History: Reports;: Family Diabetes, Family Hypertension - Social History Smoking Status: Current every day smoker Exam Vital Signs: Vital Signs Temperature 97.9 F 11/11/16 11:28 Pulse Rate 69 11/11/16 11:28 Respiratory Rate 19 11/11/16 12:28 Blood Pressure 148/96 11/11/16 11:28 O2 Sat by Pulse Oximetry 100 11/11/16 11:28 GENERAL: This is a well-nourished well-developed white male in no apparent distress. VITAL SIGNS: Reviewed HEENT: Head is atraumatic and normocephalic. Pupils are equal round react to light. Extraocular movements are intact. Oropharynx is benign with moist mucous membranes. NECK: Neck is soft and supple without tenderness. There are no masses. There is no lymphadenopathy. LUNGS: Lungs are clear to auscultation. Chest rises symmetrically. There is no chest wall tenderness. CV: Heart is regular rate and rhythm without murmurs rubs or gallops. ABDOMEN: Abdomen is soft, nontender to palpation. There are no abdominal abnormal masses palpated. There is no organomegaly. Bowel sounds are present and active. SKIN: Skin is warm and dry. No rash. EXTREMITIES: Patient has full range of motion without tenderness. There is no pedal edema. NEUROLOGIC: Awake alert and oriented 4. Cranial nerves II through XII are intact. Motor is 5 over 5 in all extremities bilaterally. Deep tendon reflexes are 2+ and bilaterally equal. Course - Consultations Consultation #1: Discussed with hospitalist. Patient will be admitted to their service. Time: 13:16 Results - Labs CBC & BMP: 11/11/16 11:40 11/11/16 11:48 Lab Results: I have reviewed the patients labs Labs: Laboratory Tests 11/11/16 11:40 Troponin I < 0.015 - EKG EKG results: interpreted by ERMD - Impressions EKG: Normal sinus rhythm with rate of 70, nonspecific ST-T wave changes, normal axis. - Diagnostic Findings Procedure: Chest x-ray: image reviewed by me (No infiltrates, no pleural effusions, no cardiomegaly.) Disposition Clinical Impression: Chest pain Case discussed with: patient Disposition: Still a Patient Condition: Stable
[2016-11-11 12:00] LABS: Basophils # 0.1 10*3/uL (0.0-0.2); Basophils % 0.8 % (0.0-0.8); Eosinophils # 0.2 10*3/uL (0.0-0.87); Hematocrit 43.2 VOL% (42.0-52.0); Hemoglobin 15.6 GM/DL (14.0-18.0); Immature Granulocytes % 1.4 %; Immature Granulocytes Absolute 0.15 #; Lymphocytes # 2.4 10*3/uL (1.4-4.0); Lymphocytes % 23.4 % (21.2-54.2); Mean Corpuscular HGB Conc 36.1 GM/DL (32-36); Mean Corpuscular Hemoglobin 32 PG (27-34); Mean Corpuscular Volume 89.3 FL (87-102); Mean Platelet Volume 9.5 FL (9.6-12.0); Monocytes # 0.8 10*3/uL (0.11-0.8); Monocytes % 7.5 % (1.7-12.7); Neutrophils # 6.7 10*3/uL (1.4-7.4); Neutrophils % 64.9 % (38.7-73.9); Platelet Count 361 T/CUMM (130-400); Red Blood Count 4.84 MC/CUMM (3.8-5.5); Red Cell Distribution Width 13.2 % (9.3-17.3); White Blood Count 10.4 T/CUMM (4-12)
[2016-11-11] MEDS ORDERED: ASPIRIN 325 MG TABLET ONE (12:00)
[2016-11-11] MEDS ORDERED: MORPHINE 2 MG/1 ML SYRINGE ONE (12:00)
[2016-11-11 12:18] LABS: INR 0.9; PT Patient Result 9.7 SECS
[2016-11-11] MEDS ORDERED: LABETALOL 20 MG/4 ML SYRINGE IV ONE (12:26)
[2016-11-11] MEDS: LABETALOL 20 MG/4 ML SYRINGE IV STA ×2 (12:27→16:17)
[2016-11-11 12:38] LABS: Albumin 4.2 G/DL (3.4-5.0); Bilirubin,Total 0.6 MG/DL (0.2-1.0); Calcium 9.8 MG/DL (8.5-10.1); Osmolality,Calculated 269.1 MOS/KG (273-304); Potassium 4.3 MMOL/L (3.5-5.1); Total Protein 7.5 G/DL (6.4-8.3)
--- NOTE | 2016-11-11 13:01 | XRay Report ---
Portable chest Date: 11/11/2016 Clinical history: Chest pain Comparison: 07/03/2016 Technique: Portable AP sitting chest Findings: The heart is small and compressed by the over expanded lungs with coronary artery stents. No acute parenchymal findings with stable mediastinum. Degenerative changes with old healed fracture of the mid to distal right clavicle. Impression: COPD with chronic scarring. Coronary artery stents. No acute cardiopulmonary pathology identified. PROCEDURE INTERPRETED AT [facility] DEPARTMENT OF RADIOLOGY Final Report Signed by: Dr. Bryanna Dickey
[2016-11-11 13:16] LABS: Barbiturates Screen,Urine Negative (Negative); Benzodiazepines Screen,Urine Negative (Negative); Cannabinoid Screen,Urine Positive (Negative); Opiate Screen,Urine Negative (Negative); Phencyclidine Screen,Urine Negative (Negative)
--- NOTE | 2016-11-11 15:23 | Hospitalist History & Physical ---
<Stephon Davis - Last Filed: 11/11/16 15:31> Assessment and Plan (1) Chest pain Status: Acute Assessment and plan: Admit to telemetry. Cardiac monitoring. Consult cardiology. Serial troponins and EKGs. Routine vitals. Current Visit: Yes (2) Coronary artery disease Status: Chronic Current Visit: No (3) Dyslipidemia Status: Chronic Assessment and plan: Restart medications. Current Visit: No (4) Hypertension Status: Chronic Assessment and plan: Restart home meds. Current Visit: No (5) Nicotine addiction Status: Chronic Assessment and plan: Nicotine patch. Current Visit: No History of Present Illness Chief complaint: chest pain History of present illness: Mr. Gamino is a 46 year old white male with a history of GERD, hypertension, CAD with 4 stents, [place], dyslipidemia, and history of cocaine and cannabis use the presents to the ED today for further evaluation of chest pain. Patient's family is present at bedside. Onset of the chest pain was yesterday. Patient states that the pain is located in the middle of his chest and it is an achy feeling that radiates into his left arm as well as shoulder blades. Patient also states he experiences numbness in association with the pain. Patient also reports shortness of breath, nausea, vomiting, and diaphoresis. Patient states that he is followed by Dr. Tejeda, and was just seen on October 25. In the ED, pts labs were unremarkable. Troponin was < 0.015. CXR was negative for any process. However, due to patient's history of multiple heart attacks, he will be admitted to the hospitalist service for further eval and treatment. Home Medications Medication Instructions Recorded Confirmed Type Aspirin [Ecotrin] 81 mg PO DAILY 04/26/16 11/11/16 History Clopidogrel [Plavix] 75 mg PO DAILY 04/26/16 11/11/16 History Atorvastatin [Lipitor] 40 mg PO BEDTIME #30 tablet 07/04/16 11/11/16 Rx Captopril [Capoten] 12.5 mg PO TID #45 tablet 07/04/16 11/11/16 Rx Carvedilol [Coreg] 3.125 mg PO DAILY 11/11/16 11/11/16 History Allergies Allergy/AdvReac Type Severity Reaction Status Date / Time Sulfa (Sulfonamide Allergy ANAPHYLAXIS Verified 04/26/16 05:43 Antibiotics) Medical,Surgical,& Family Hx - Medical History Cardio: History of: CAD, [place] Psychological: History of: Psychiatric/Substance Abuse Tx (History of cocaine and cannabis use) Endocrine: History of: Dyslipidemia Gastrointestinal: History of: GERD - Surgical History Cardiac Surgeries: Sugical HX of: Cardiac Catheterization - Family History Family History: Reports;: Family Diabetes, Family Hypertension - Social History Smoking Status: Current every day smoker Type of Drug Use: Marijuana Lives With:: Significant Other Functional capacity: independent ambulation - Constitutional Constitutional: Present: chills. Absent: fever(s) - EENT Eyes: Absent: loss of vision, requires corrective lense Ears: Absent: decreased hearing Nose, mouth and throat: Present: headache(s) - Cardiovascular Cardiovascular: Present: chest pain at rest, diaphoresis, radiating jaw, neck or arm pain. Absent: edema - Gastrointestinal Gastrointestinal: Present: nausea, vomiting. Absent: abdominal pain - Genitourinary Genitourinary: Absent: difficulty urinating - Neurological Neurological: Absent: confusion, dizziness - Psychiatric Psychiatric: Absent: anxiety, depression Exam - Constitutional Vitals: Period Temp Pulse Resp BP Sys/Buchanan Pulse Ox Last 24 Hr 97.9 F 54-69 19-22 115-148/80-96 98-100 General appearance: normal weight, no acute distress - Head Head exam: Present: normal inspection, normocephalic - Eye Eye exam: Present: EOMI. Absent: scleral icterus Pupils: Present: GASTON - ENT ENT exam: Present: normal exam - Neck Neck exam: Present: normal inspection - Respiratory Respiratory exam: Present: clear to auscultation bilaterally. Absent: wheezes - Cardiovascular Cardiovascular exam: Present: bradycardia - GI/Abdominal GI/Abdominal exam: Present: normal bowel sounds, soft. Absent: tenderness - Extremities Exam Extremities exam: Present: normal capillary refill, full ROM. Absent: edema - Back Exam Back exam: Present: normal inspection - Neurological Exam Neurological exam: Present: alert, oriented X3 - Psychiatric Psychiatric exam: Present: normal affect, normal mood - Skin Skin exam: Present: normal color, warm, dry Results - Labs CBC & BMP: 11/11/16 11:40 11/11/16 11:48 Lab Results: I have reviewed the past 24 hour labs <Jesus Knox - Last Filed: 11/11/16 16:22> History of Present Illness History of present illness: Mr. Gamino is a 46 year old male with previous history of coronary artery disease status post coronary stent insertion. He presented to the hospital today with recurrent chest pain. Laboratory testing in the emergency department included a normal serum troponin of less than 0.015. I agree with the assessment and plans of the nurse practitioner. Mr. Gamino will be admitted to the hospital. Cardiology has been consulted. Exam - Constitutional Vitals: Period Temp Pulse Resp BP Sys/Buchanan Pulse Ox Last 24 Hr 97.9 F 54-69 19-22 115-148/72-96 98-100 Results - Labs CBC & BMP: 11/11/16 11:40 11/11/16 11:48
--- NOTE | 2016-11-11 15:42 | EKG Report ---
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
[2016-11-11] MEDS ORDERED: ACETAMINOPHEN 325 MG TABLET PO PRN (15:58)
[2016-11-11] MEDS: SODIUM CHLORIDE 0.9% 1,000 ML IV SCH (16:44)
[2016-11-11] MEDS: NICOTINE 21 MG/24 HR PATCH TRANSDERM SCH (16:45)
[2016-11-11] MEDS ORDERED: ALUM/MAG/SIMETH/LIDO VISC 1:1 30 ML BOTTLE PO ONE (17:25)
--- NOTE | 2016-11-11 17:43 | Cardiology Consult Note ---
Assessment and Plan - Time spent with patient Time spent with patient: Greater than 30 minutes (1) Chest pain in adult Status: Acute Assessment and plan: His chest pain sounds like it could be cardiac, but with an hour of chest pain and negative enzymes and EKG so far, it may be noncardiac. If is noncardiac it could be esophageal reflux, esophageal spasm, gastritis, esophageal stricture or muscle skeletal pain Plan/recommendation: Admit to monitored bed Serial cardiac isoenzymes and EKG Increase Protonix to 40 mg twice daily for now Elevate the head of bed GI cocktail, 30 cc now Trial of hyoscyamine If cardiac isoenzymes are negative, will get GI involved. Maybe he needs a re- scope and dilatation for his dysphagia and severe reflux I reviewed his heart cath report of . That was only about 4 months ago. If his enzymes are positive will decide whether to recath or treat medically with follow-up. Hold Lovenox for now. Last dose was at 11:29 PM today. Hold Plavix for now. She does need an E scope. I suppose it could be done later in the week. We will continue aspirin for now He is going to continue pursuing his disability Thank you for allowing me to participate in this patient's care Current Visit: Yes (2) GERD (gastroesophageal reflux disease) Status: Acute Current Visit: Yes (3) Sinus infection Status: Acute Current Visit: Yes (4) Cannabis abuse Status: Chronic Current Visit: No (5) Coronary artery disease Status: Chronic Current Visit: No (6) Dyslipidemia Status: Chronic Current Visit: No (7) Hypertension Status: Chronic Current Visit: No (8) Ischemic cardiomyopathy Status: Chronic Current Visit: No (9) Nicotine addiction Status: Chronic Current Visit: No (10) Old anteroseptal myocardial infarction Status: Chronic Current Visit: No (11) S/P coronary artery stent placement Status: Chronic Current Visit: No (12) Dysphagia Status: Acute Current Visit: Yes (13) Odynophagia Status: Acute Current Visit: Yes History of Present Illness - Data of Consult Patient: known to practice within the last 3 years Consult date: 11/11/16 Requesting Physician: Jesus Knox - Consult Narrative Reason for consult: Evaluate chest pain for about an hour, history of CAD History of present illness: Mr. Gamino is a 46 year old male PCP:? It Risk Analyst: Dr. Norman Tejeda The patient is 46. He has known CAD. He had some stent placed in [place] in the past. He came here in June and underwent heart cath. He had some ischemia related to an occluded , jailed diagonal related to placement of the stent his LAD. He was let go home. He seen Dr. Salinas and part follow-up. He is applying for disability. He has not been working. His lost his house, and his car, another things. Yesterday, both of his hands were numb. Today, is trying put a door house. He became dizzy. He laid down. He then began having chest pain. It was over his left chest. It did not radiate to his arms back or neck. He maybe had some jaw pain with it. It was burning and sharp. Nothing brought it on. Nothing made it better. He came to the emergency room. On the way, the pain became better. Last about an hour. There is some associated nausea vomiting. Some shortness of breath. No diaphoresis. He was admitted. I was asked to see him. He does have dysphagia and odynophagia and severe GE reflux. He is begun on Nexium lately. Past medical: 1 CAD #2 LV systolic dysfunction #3 severe GERD and reflux disease #4 smoker Home meds includes Capoten, clopidogrel, aspirin, and carvedilol. Social history: Does smoke cigarettes but has cut down. Smokes less than a half pack per day of cigarettes. Drinks a six pack of beer over the weekend. Family history is remarkable coronary disease. No diabetes. Review of systems is remarkable for him having a sinus infection which is severe. Otherwise unremarkable. CC: Deyanira Manzo MD - Home Medications and Allergies Home Medications: Home Medications Medication Instructions Recorded Confirmed Type Aspirin [Ecotrin] 81 mg PO DAILY 04/26/16 11/11/16 History Clopidogrel [Plavix] 75 mg PO DAILY 04/26/16 11/11/16 History Atorvastatin [Lipitor] 40 mg PO BEDTIME #30 tablet 07/04/16 11/11/16 Rx Captopril [Capoten] 12.5 mg PO TID #45 tablet 07/04/16 11/11/16 Rx Carvedilol [Coreg] 3.125 mg PO DAILY 11/11/16 11/11/16 History Allergies/Adverse Reactions: Allergies Allergy/AdvReac Type Severity Reaction Status Date / Time Sulfa (Sulfonamide Allergy ANAPHYLAXIS Verified 04/26/16 05:43 Antibiotics) 12 point system: reviewed and no additional remarkable complaints except as stated (A 12 point review of systems is negative except for as mentioned in HPI. ) Medical,Surgical,& Family Hx - Medical History Cardio: History of: CAD, [place] Psychological: History of: Psychiatric/Substance Abuse Tx (History of cocaine and cannabis use) Endocrine: History of: Dyslipidemia Gastrointestinal: History of: GERD - Surgical History Cardiac Surgeries: Sugical HX of: Cardiac Catheterization - Family History Family History: Reports;: Family Diabetes, Family Hypertension - Social History Smoking Status: Current every day smoker Frequency of Alcohol Use: Rarely Type of Drug Use: Marijuana Functional capacity: independent ambulation Physical Examination Vital Signs Temp Pulse Resp BP Pulse Ox 97.9 F 69 22 148/96 100 11/11/16 11:28 11/11/16 11:28 11/11/16 11:28 11/11/16 11:28 11/11/16 11:28 Exam: HEENT: Pupils equal, reactive to light and accommodation Neck: NoJVD or bruit Lungs clear to auscultation Heart: Regular rhythm rate with normal S1 and S2. Apical S4 Abdomen: No hepatosplenomegaly Spine/extremities: No clubbing, cyanosis, or edema Neuro: Nonfocal Psych: No depression or anxiety no tenderness in pressing on his chest or his abdomen or back. Result/EKG - Labs CBC & BMP: 11/11/16 11:40 11/11/16 11:48 Lab Results: I have reviewed the past 24 hour labs Labs: Laboratory Results - last 24 hr 11/11/16 11/11/16 11/11/16 11:40 11:40 11:40 WBC 10.4 RBC 4.84 Hgb 15.6 Hct 43.2 MCV 89.3 MCH 32 MCHC 36.1 H RDW 13.2 Plt Count 361 MPV 9.5 L Neut % (Auto) 64.9 Lymph % (Auto) 23.4 [place] % (Auto) 7.5 Eos % (Auto) 2.0 Baso % (Auto) 0.8 Neut # (Auto) 6.7 Lymph # (Auto) 2.4 [place] # (Auto) 0.8 Eos # (Auto) 0.2 Baso # (Auto) 0.1 Immature Gran % 1.4 Nucleated RBC % 0.0 Immature Gran # 0.15 Nucleated RBCs # 0.00 Immature Plt Fraction 0.0 INR 0.9 PT Patient/Control Mix 9.7 Circ Anticoag PTT 29.0 Sodium Potassium Chloride Carbon Dioxide Anion Gap BUN Creatinine GFR Calculation BUN/Creatinine Ratio Glucose Calculated Osmolality Calcium Total Bilirubin AST ALT Alkaline Phosphatase Troponin I < 0.015 Total Protein Albumin Globulin Albumin/Globulin Ratio Urine Opiates Screen Ur Barbiturates Screen Ur Phencyclidine Scrn U Amphetamine/Methamph U Benzodiazepines Scrn U Cocaine Metab Screen U Cannabinoids Screen 11/11/16 11/11/16 11/11/16 11:48 11:53 15:38 WBC RBC Hgb Hct MCV MCH MCHC RDW Plt Count MPV Neut % (Auto) Lymph % (Auto) [place] % (Auto) Eos % (Auto) Baso % (Auto) Neut # (Auto) Lymph # (Auto) [place] # (Auto) Eos # (Auto) Baso # (Auto) Immature Gran % Nucleated RBC % Immature Gran # Nucleated RBCs # Immature Plt Fraction INR PT Patient/Control Mix Circ Anticoag PTT Sodium 135 L Potassium 4.3 Chloride 101 Carbon Dioxide 25 Anion Gap 13.3 BUN 10 Creatinine 1.20 GFR Calculation 78 BUN/Creatinine Ratio 8.00 Glucose 111 H Calculated Osmolality 269.1 L Calcium 9.8 Total Bilirubin 0.60 AST 19 ALT 24 Alkaline Phosphatase 79 Troponin I < 0.015 Total Protein 7.5 Albumin 4.2 Globulin 3.3 Albumin/Globulin Ratio 1.2 Urine Opiates Screen Negative Ur Barbiturates Screen Negative Ur Phencyclidine Scrn Negative U Amphetamine/Methamph Negative U Benzodiazepines Scrn Negative U Cocaine Metab Screen Negative U Cannabinoids Screen Positive H - Diagnostic Findings Procedure: Chest x-ray: report reviewed by me - EKG EKG results: interpreted by me
[2016-11-11] MEDS: PANTOPRAZOLE 40 MG TABLET PO SCH (18:11)
[2016-11-11 18:55] LABS: Troponin I Only < 0.015 NG/ML (0.00-0.045)
[2016-11-11] MEDS: CAPTOPRIL 12.5 MG TABLET PO SCH (20:44)
[2016-11-11] MEDS: HYOSCYAMINE 0.125 MG TABLET SL SCH (20:44)
[2016-11-11] MEDS: SUCRALFATE 1 GM/10 ML UDCUP PO SCH (20:45)
[2016-11-11] MEDS ORDERED: ATORVASTATIN 40 MG TABLET PO SCH (21:00)
--- NOTE | 2016-11-11 21:06 | Gastrointestinal Consult Note ---
Assessment and Plan (1) Dysphagia Status: Acute Assessment and plan: This the patient's major complaint and likely is rooted in long-standing reflux. The symptoms sound like a physical stricture which might be amenable to dilation with Savary versus Perry dilators. The patient also needs his reflux controlled more vigorously and I do suggest that Nexium should certainly fit the bill if taken at the appropriate time which is 30 minutes prior to suppertime. A prescription has been written and left in the front of the chart. For the patient undergo endoscopy he would need to likely be off of Lovenox and/or Plavix for about 4 days prior to the procedure. The patient could be maintained on his aspirin if this is the only agent used for anticoagulation. We can certainly pursue this as an outpatient when the bank boss feels the patient is able to take this 4 day hiatus from his anticoagulation. I will her a barium swallow tomorrow to look and see if there are any critical strictures that we need to dilate sooner than later. In my opinion he could be dilated any time the bank boss feels like he could come off of the anticoagulation for the above parameters. The patient has my office number to arrange this endoscopy when he has been cleared. I agree with Dr. Nelson that esophagitis and esophageal spasm could certainly be resulting in some atypical chest pain for this patient and warrant evaluation. Current Visit: Yes (2) GERD (gastroesophageal reflux disease) Status: Acute Assessment and plan: I will write a prescription for the Nexium as mentioned above and leave this in the front of the chart for potential discharge tomorrow. If the patient elects to stay longer during the hospitalization and remains off of Lovenox we could consider doing dilation this admission, potentially. The soonest we would obtain the EGD with dilation would be 11/13/16 Current Visit: Yes (3) History of melena Status: Acute Assessment and plan: Patient states that he is having melena from time to time but his hematocrit is completely normal at this time. We will check him for evidence of a bleeding source during upper endoscopy to follow with some point. The Nexium should prevent peptic ulcer disease in most patients. Continue to urge the patient to remain away from NSAIDs, alcohol and tobacco. Current Visit: Yes (4) Gastroesophageal reflux disease Status: Acute Assessment and plan: As noted above, likely the cause for the dysphagia. Eosinophilic esophagitis remains in the differential as well and could result in stricturing especially in this age group. We may perform biopsies while we do upper endoscopy. Current Visit: Yes History of Present Illness Chief complaint: Dysphagia, severe reflux, occasional melena with normal hematocrit History of present illness: Mr. Gamino is a 46 year old male who has a history of reflux he states is been going on for the last 10 years with difficulty swallowing and retrosternal chest pain likely to some degree due to this reflux. He has not been worked up with upper endoscopy to this point and does feel food sticking at the base of his esophagus "constantly". He states this is certainly been worse over the last 2 years. This being said he is eating a [employer] sandwich at the bedside without obvious difficulties. His corroborates that he does have to sit up both straight and swallow with maneuvers in order to pass his food boluses at times. He has tried a variety of different medications including Mylanta, Pepto-Bismol and Prilosec none of which have been completely effective for him. He is just been started on Nexium this visit. I will leave him a prescription for Nexium in the front of the chart in case he is discharged tomorrow. He has been placed on Plavix and sees Dr. Nelson, he has a history of stents placed in November of last year and has been told that he needs to stay on the Plavix for at least a full year prior to coming off of this for any duration of time. We will likely have to pursue upper endoscopy with dilation as an outpatient given the situation. He will need to be off of his Plavix for about 4 days prior to the procedure and may be able to resume Plavix shortly thereafter. He states that his tobacco use is dropped from 3 packs a day to half a pack a day, he does have a history of cocaine and cannabis use in the past. He has not been seen by other gastroenterologists this or prior admissions. He does note that he has some black stools upon occasion the last of these occurring some 2 weeks ago. His blood counts currently are not at all anemic with last hematocrit check at 43%. He was given his last dose of Lovenox today at about 11:30. He continues to take aspirin but is off his Plavix for the present time. The Lovenox is now being held. Home Medications Medication Instructions Recorded Confirmed Type Aspirin [Ecotrin] 81 mg PO DAILY 04/26/16 11/11/16 History Clopidogrel [Plavix] 75 mg PO DAILY 04/26/16 11/11/16 History Atorvastatin [Lipitor] 40 mg PO BEDTIME #30 tablet 07/04/16 11/11/16 Rx Captopril [Capoten] 12.5 mg PO TID #45 tablet 07/04/16 11/11/16 Rx Carvedilol [Coreg] 3.125 mg PO DAILY 11/11/16 11/11/16 History Allergies Allergy/AdvReac Type Severity Reaction Status Date / Time Sulfa (Sulfonamide Allergy ANAPHYLAXIS Verified 04/26/16 05:43 Antibiotics) Medical,Surgical,& Family Hx - Medical History Cardio: History of: CAD, [place] Psychological: History of: Psychiatric/Substance Abuse Tx (History of cocaine and cannabis use) Endocrine: History of: Dyslipidemia Gastrointestinal: History of: GERD - Surgical History Cardiac Surgeries: Sugical HX of: Cardiac Catheterization - Family History Family History: Reports;: Family Diabetes, Family Hypertension - Social History Smoking Status: Current every day smoker Frequency of Alcohol Use: Rarely Type of Drug Use: Marijuana Review of systems: Constitutional: Denies fever, chills, he does have some mild nausea, but does not typically have vomiting Eyes: Denies dry eyes, and scleral icterus HENT: Denies headaches Cardiovascular: Admits to some recent acute chest pain without claudication Respiratory: Positive for shortness of breath, wheezing, and difficulty breathing, denies cough Gastrointestinal: As noted in the HPI Genitourinary: Denies dysuria and hematuria Neurologic: Denies vision loss, and loss of sensation Musculoskeletal: Denies joint swelling, joint stiffness, but does complain of some muscular weakness Psychiatric: Denies depression and nori symptoms Heme-Lymph: Denies easy bruising, lymph node enlargement or tenderness, night sweats, excessive bleeding Allergies-immunologic: Denies pruritus and rhinorrhea Exam - Constitutional Vitals: Period Temp Pulse Resp BP Sys/Buchanan Pulse Ox Last 24 Hr 97.7 F-97.9 F 54-69 18-22 115-148/71-96 98-100 General appearance: no acute distress Exam: Constitutional: Well-developed, well-nourished, alert, and in no acute distress Head and face: Head: Normocephalic atraumatic Eyes: Conjunctiva without injection, no gross scleral icterus, pupils equal and round bilaterally Ears: Intact to conversation in both ears Nose: External appearance is normal, nares patent Mouth: Oral mucous membranes moist without erythema dentition noted to be without erosion Neck: Normal appearance, no masses or tenderness, trachea midline Thyroid: Gland midline and appropriate size for age Respiratory: Normal respiratory effort, clear to auscultation without wheezes, rhonchi or rales Cardiovascular: Regular rate and rhythm, normal S1, S2, the exam is without rubs, murmurs or gallops. Gastrointestinal: Nontender to palpation, normal active bowel sounds, tone normal without rigidity or guarding, no masses present, no hepatomegaly, no spleen tip felt. No rectal exam obtained. Lymphatic: Neck without adenopathy, axilla without lymphadenopathy present Musculoskeletal: Right and left lower extremities without evidence of edema Skin and subcutaneous tissue: No rashes or ulcerations noted, normal skin turgor, digits and nails without clubbing/cyanosis/deformities. Neurologic: The patient is grossly oriented to person place and time, cranial nerves show tongue movements are normal with normal tongue extrusion midline, light touch sensation is intact. Psychiatric: No hallucinations or delusions are present, does not appear depressed Results - Labs CBC & BMP: 11/11/16 11:40 11/11/16 11:48
[2016-11-12 02:32] LABS: Basophils # 0.1 10*3/uL (0.0-0.2); Basophils % 0.7 % (0.0-0.8); Eosinophils # 0.3 10*3/uL (0.0-0.87); Eosinophils % 4.8 % (0.00-10.9); Hematocrit 40.3 VOL% (42.0-52.0); Hemoglobin 14.4 GM/DL (14.0-18.0); Immature Granulocytes % 1.4 %; Lymphocytes # 2.9 10*3/uL (1.4-4.0); Lymphocytes % 40.3 % (21.2-54.2); Mean Corpuscular HGB Conc 35.7 GM/DL (32-36); Mean Corpuscular Hemoglobin 32 PG (27-34); Mean Platelet Volume 9.8 FL (9.6-12.0); Monocytes # 0.6 10*3/uL (0.11-0.8); Monocytes % 8.3 % (1.7-12.7); Neutrophils # 3.1 10*3/uL (1.4-7.4); Neutrophils % 44.5 % (38.7-73.9); Platelet Count 317 T/CUMM (130-400); Red Blood Count 4.48 MC/CUMM (3.8-5.5); Red Cell Distribution Width 13.2 % (9.3-17.3); White Blood Count 7.1 T/CUMM (4-12)
[2016-11-12 03:11] LABS: Troponin I Only < 0.015 NG/ML (0.00-0.045)
[2016-11-12 03:12] LABS: Troponin I Only < 0.015 NG/ML (0.00-0.045)
[2016-11-12 03:18] LABS: Magnesium 1.9 MG/DL (1.8-2.4); Osmolality,Calculated 278.5 MOS/KG (273-304); Potassium 4.2 MMOL/L (3.5-5.1); Risk Ratio 7.18; Thyroid Stimulating Hormone 0.726 uIU/ml (0.358-3.74); VLDL CHOLESTEROL 84.6 MG/DL
[2016-11-12] MEDS: SODIUM CHLORIDE 0.9% 1,000 ML IV SCH (06:10)
[2016-11-12 06:18] LABS: Apearance,Urine CLEAR (Clear); Bilirubin,Urine Negative (Negative); Blood, Urine Negative (Negative); Glucose,Urine (UA) Negative (Negative); Ketones,Urine Negative (Negative); Mucus,Urine Occasional /LPF (Occasional); Nitrite,Urine Negative (Negative); Protein,Urine Negative; RBC,Urine <1 /HPF (0-4); Urine Color Yellow (Yellow); Urine Specific Gravity 1.021 (1.001-1.035); Urine Urobilinogen < 2.0 EU/DL (0.2-1.0); WBC,Urine <1 /HPF (0-6)
--- NOTE | 2016-11-12 06:53 | Gastrointestinal Progress Note ---
Assessment and Plan (1) Dysphagia Status: Acute Assessment and plan: This the patient's major complaint and likely is rooted in long-standing reflux. The symptoms sound like a physical stricture which might be amenable to dilation with Savary versus Perry dilators. The patient also needs his reflux controlled more vigorously and I do suggest that Nexium should certainly fit the bill if taken at the appropriate time which is 30 minutes prior to suppertime. A prescription has been written and left in the front of the chart. For the patient undergo endoscopy he would need to likely be off of Lovenox and/or Plavix for about 4 days prior to the procedure. The patient could be maintained on his aspirin if this is the only agent used for anticoagulation. We can certainly pursue this as an outpatient when the real estate transaction coordinator feels the patient is able to take this 4 day hiatus from his anticoagulation. I will her a barium swallow tomorrow to look and see if there are any critical strictures that we need to dilate sooner than later. In my opinion he could be dilated any time the real estate transaction coordinator feels like he could come off of the anticoagulation for the above parameters. The patient has my office number to arrange this endoscopy when he has been cleared. I agree with Dr. Nelson that esophagitis and esophageal spasm could certainly be resulting in some atypical chest pain for this patient and warrant evaluation. 11/12/16--The patient will be going to barium swallow today to assess for spasm versus stricture, as mentioned above the patient could be discharged to follow- up after 4 days off anticoagulation versus leaving off of anticoagulation potentially doing this test tomorrow provided the barium swallow appears abnormal to the point where he requires dilation. Current Visit: Yes (2) GERD (gastroesophageal reflux disease) Status: Acute Assessment and plan: I will write a prescription for the Nexium as mentioned above and leave this in the front of the chart for potential discharge tomorrow. If the patient elects to stay longer during the hospitalization and remains off of Lovenox we could consider doing dilation this admission, potentially. The soonest we would obtain the EGD with dilation would be 11/13/16. 11/12/16--Plan as mentioned above. Barium swallow pending. Current Visit: Yes (3) History of melena Status: Acute Assessment and plan: Patient states that he is having melena from time to time but his hematocrit is completely normal at this time. We will check him for evidence of a bleeding source during upper endoscopy to follow with some point. The Nexium should prevent peptic ulcer disease in most patients. Continue to urge the patient to remain away from NSAIDs, alcohol and tobacco. 11/12/16--Nexium prescription left on the from of the chart as per discussion yesterday. We will be able to examine for causes of melena while we perform upper endoscopy at some point. Current Visit: Yes (4) Gastroesophageal reflux disease Status: Acute Assessment and plan: As noted above, likely the cause for the dysphagia. Eosinophilic esophagitis remains in the differential as well and could result in stricturing especially in this age group. We may perform biopsies while we do upper endoscopy. 11/12/16--No change from plan previous. Current Visit: Yes Gastroenterology - PN: Subj Interval history: Patient is doing better this morning no new complaints from last night. He is awaiting barium swallow to rule out significant stricture versus spasm versus mass in the distal esophagus. He could certainly be discharged afterwards but may wish to stay for an additional day to consider dilation on Friday if he wishes to stay versus discharge and follow-up for endoscopy after 4 days off Plavix/Lovenox. He notes that his stents were placed in November 2015--he may wish to take a full year on anticoagulation before discontinuing this 4 days for dilation.. Exam (Progress Note) - Constitutional Vitals: Period Temp Pulse Resp BP Sys/Buchanan Pulse Ox Last 24 Hr 97.4 F-98.1 F 50-69 18-22 96-148/50-96 97-100 General appearance: no acute distress - Eye Eye exam: Present: EOMI Pupils: Present: GASTON - Respiratory Respiratory exam: Present: clear to auscultation bilaterally - Cardiovascular Cardiovascular exam: Present: regular rate and rhythm - GI/Abdominal GI/Abdominal exam: Present: normal bowel sounds, soft. Absent: distended, guarding, tenderness, rebound - Neurological Exam Neurological exam: Present: alert, oriented X3. Absent: altered - Psychiatric Psychiatric exam: Present: normal affect, normal mood - Skin Skin exam: Present: warm Results - Labs CBC & BMP: 11/12/16 02:11 11/12/16 02:11
--- NOTE | 2016-11-12 07:13 | EKG Report ---
Stationary ECG Study [facility] Test Date: 11/12/2016 7:11:43 AM Pat Name: ELYSSA MARIE Department: Room: 270 Gender: M Respiratory Tech: YAJAIRA : 1970 Requested by: Arsh Nelson Order Number: [id number] Reading MD: ARSH NELSON Intervals [place] Rate: 51 P: 59 OR: 163 QRS: 50 QRSD: 105 T: 62 QT: 437 QTc: 415 Interpretive Statements SINUS BRADYCARDIA SEPTAL MYOCARDIAL INFARCTION, OF INDETERMINATE AGE Electronically Signed On 11-12-16 09:30:38 CDT by ARSH NELSON [email or web address]
[2016-11-12] MEDS ORDERED: PANTOPRAZOLE 40 MG TABLET PO SCH (09:00)
[2016-11-12] MEDS ORDERED: CLOPIDOGREL 75 MG TABLET PO SCH (09:00)
[2016-11-12] MEDS ORDERED: CARVEDILOL 3.125 MG TABLET PO SCH (09:00)
[2016-11-12] MEDS ORDERED: ASPIRIN EC 81 MG TABLET PO SCH (09:00)
[2016-11-12] MEDS ORDERED: ATORVASTATIN 40 MG TABLET PO SCH (09:52)
--- NOTE | 2016-11-12 09:52 | Cardiology Progress Note ---
Assessment and Plan - Time spent with patient Time spent with patient: Less than 30 minutes (1) Chest pain Status: Acute Assessment and plan: See plan of care listed below. Current Visit: Yes (2) GERD (gastroesophageal reflux disease) Status: Chronic Assessment and plan: See plan of care listed below. Current Visit: Yes (3) Cannabis abuse Status: Chronic Assessment and plan: See plan of care listed below. Current Visit: No (4) Coronary artery disease Status: Chronic Assessment and plan: See plan of care listed below. Current Visit: No (5) Dyslipidemia Status: Chronic Assessment and plan: See plan of care listed below. Current Visit: No (6) Hypertension Status: Chronic Assessment and plan: See plan of care listed below. Current Visit: No (7) Ischemic cardiomyopathy Status: Chronic Assessment and plan: See plan of care listed below. Current Visit: No (8) Nicotine addiction Status: Chronic Assessment and plan: See plan of care listed below. Current Visit: No (9) Dysphagia Status: Acute Assessment and plan: See plan of care listed below. Current Visit: Yes (10) Odynophagia Status: Acute Assessment and plan: See plan of care listed below. Current Visit: Yes Cardiology - PN: Subj Interval history: Director Hris: Dr. Tejeda SUMMARY: 46 y/o WM presented with chest pain. History of CAD, HTN, HLD, tobacco abuse, cannabis abuse. Ruled out for SC with negative cardiac biomarkers and unremarkable EKGs. NOVEMBER 12, 2016 UPDATE: Mr. Gamino is feeling well today. He reports he has had occasional mild pains since admission. He reports nitroglycerin doesn't help with this. We will try adding a long-acting nitrate such as Imdur to his regimen. Unfortunately, he has been applying for disability but still has no insurance. Ranexa may be an option for him in the future, but after discussing this with the patient and his today, they would not be able to afford it at this time. Vital signs and labs are stable. Lipid panel revealed triglycerides 423, cholesterol 273, LDL 170, HDL 38, will increase atorvastatin to 80mg po QHS. ASSESSMENT/PLAN: 1. CHEST PAIN - Improved this morning. GI is following and he is scheduled for barium swallow this morning. Cardiac enzymes and EKGs have been unremarkable. Last cath was done 06/2016, CAD is not amenable to further intervention. Continue medical therapy with aspirin, BB, MAJOR, statin. 2. GERD - Continue PPI. GI is following. It's possible he may need a re-scope and dilatation for his dysphagia and severe reflux. Will hold Plavix in anticipation of possible E-scope. 3. CANNABIS ABUSE - Urged complete cessation. 4. CORONARY ARTERY DISEASE - His CAD is not amenable to further intervention. Last cath on 07/04/16 revealed occluded ostium of a diagonal of the LAD with collaterals, moderate disease of the proximal LAD just prior to the stent, mild disease in cicumflex and right coronary, widely patent LAD stent/stent (has appearance and some stents within the stent), moderately severe global hypokinesis with EF about 30%. 5. DYSLIPIDEMIA - Will increase atorvastatin. Lipid panel revealed triglycerides 423, cholesterol 273, LDL 170, HDL 38. 6. HYPERTENSION - Currently well controlled. Will continue to monitor and adjust accordingly. 7. ISCHEMIC CARDIOMYOPATHY - EF 30-40%. Well compensated at this time. 8. NICOTINE ADDICTION - Patient has cut down to less than 1/2 PPD and continues to work towards a goal of total cessation. 9. DYSPHAGIA - GI is following. He is planned for barium swallow this morning. 10. ODYNOPHAGIA - GI is following. Exam (Progress Note) - Constitutional Vitals: Period Temp Pulse Resp BP Sys/Buchanan Pulse Ox Last 24 Hr 97.3 F-98.1 F 50-69 16-22 96-148/50-96 97-100 Exam: General: Present: Appears Well, No Apparent Distress. Pleasant and cooperative. HEENT: Present: PERRL, Normocephaly, atraumatic. Mucus Membranes Moist. No jaundice noted. Conjunctiva moist and clear. Neck: Present: Supple Neck, Midline Trachea, No Masses, No Bruit, No tenderness Cardiac: Present: Regular Rate and Rhythm, No Murmur Lungs: Present: clear to auscultation bilaterally, no wheezes, rhonchi, rales. Neuro: Present: Awake, alert, and oriented x3. Moves all extremities well without hemiparesis or paralysis. Grossly Intact. Absent: Resting Tremor, Essential Tremor Abdomen: Present: Soft, Active Bowel Sounds, No Masses, Non-Tender, nondistended. No abdominal bruit or thrill noted. Skin: Present: Clear. Absent: Rash, No skin breakdown. Back: Normal inspection, no vertebral tenderness. Musculoskeletal: Present: No Fluid Collection, No Pain, Normal Range of Motion Extremities: Present: Normal Gait, No Clubbing, No Cyanosis, Upper Extr. Pulses 2+, Lower Extr. Pulses 2+, No edema. Capillary refill less than 3 seconds. Result/EKG - Labs CBC & BMP: 11/12/16 02:11 11/12/16 02:11 Lab Results: I have reviewed the past 24 hour labs Labs: Laboratory Results - last 24 hr 11/11/16 11/11/16 11/11/16 03:40 11:40 11:40 WBC 10.4 RBC 4.84 Hgb 15.6 Hct 43.2 MCV 89.3 MCH 32 MCHC 36.1 H RDW 13.2 Plt Count 361 MPV 9.5 L Neut % (Auto) 64.9 Lymph % (Auto) 23.4 Dare % (Auto) 7.5 Eos % (Auto) 2.0 Baso % (Auto) 0.8 Neut # (Auto) 6.7 Lymph # (Auto) 2.4 Dare # (Auto) 0.8 Eos # (Auto) 0.2 Baso # (Auto) 0.1 Immature Gran % 1.4 Nucleated RBC % 0.0 Immature Gran # 0.15 Nucleated RBCs # 0.00 Immature Plt Fraction 0.0 INR 0.9 PT Patient/Control Mix 9.7 Circ Anticoag PTT 29.0 Sodium Potassium Chloride Carbon Dioxide Anion Gap BUN Creatinine GFR Calculation BUN/Creatinine Ratio Glucose Hemoglobin A1c Calculated Osmolality Calcium Magnesium Total Bilirubin AST ALT Alkaline Phosphatase Total Creatine Kinase CK-MB (CK-2) Troponin I B-Natriuretic Peptide Total Protein Albumin Globulin Albumin/Globulin Ratio Triglycerides Cholesterol LDL Cholesterol VLDL Cholesterol HDL Cholesterol Heart Disease Risk Ratio TSH 3rd Generation Urine Color Yellow Urine Appearance Clear Urine pH 6.0 Ur Specific [place] 1.021 Urine Protein Negative Urine Glucose (UA) Negative Urine Ketones Negative Urine Blood Negative Urine Nitrate Negative Urine Bilirubin Negative Urine Urobilinogen < 2.0 H Urine Leukocytes Negative Urine RBC <1 Urine WBC <1 Urine Mucus Occasional Ur Culture Indicated? Not indicated Urine Opiates Screen Ur Barbiturates Screen Ur Phencyclidine Scrn U Amphetamine/Methamph U Benzodiazepines Scrn U Cocaine Metab Screen U Cannabinoids Screen 11/11/16 11/11/16 11/11/16 11:40 11:48 11:53 WBC RBC Hgb Hct MCV MCH MCHC RDW Plt Count MPV Neut % (Auto) Lymph % (Auto) Dare % (Auto) Eos % (Auto) Baso % (Auto) Neut # (Auto) Lymph # (Auto) Dare # (Auto) Eos # (Auto) Baso # (Auto) Immature Gran % Nucleated RBC % Immature Gran # Nucleated RBCs # Immature Plt Fraction INR PT Patient/Control Mix Circ Anticoag PTT Sodium 135 L Potassium 4.3 Chloride 101 Carbon Dioxide 25 Anion Gap 13.3 BUN 10 Creatinine 1.20 GFR Calculation 78 BUN/Creatinine Ratio 8.00 Glucose 111 H Hemoglobin A1c Calculated Osmolality 269.1 L Calcium 9.8 Magnesium Total Bilirubin 0.60 AST 19 ALT 24 Alkaline Phosphatase 79 Total Creatine Kinase CK-MB (CK-2) Troponin I < 0.015 B-Natriuretic Peptide Total Protein 7.5 Albumin 4.2 Globulin 3.3 Albumin/Globulin Ratio 1.2 Triglycerides Cholesterol LDL Cholesterol VLDL Cholesterol HDL Cholesterol Heart Disease Risk Ratio TSH 3rd Generation Urine Color Urine Appearance Urine pH Ur Specific [place] Urine Protein Urine Glucose (UA) Urine Ketones Urine Blood Urine Nitrate Urine Bilirubin Urine Urobilinogen Urine Leukocytes Urine RBC Urine WBC Urine Mucus Ur Culture Indicated? Urine Opiates Screen Negative Ur Barbiturates Screen Negative Ur Phencyclidine Scrn Negative U Amphetamine/Methamph Negative U Benzodiazepines Scrn Negative U Cocaine Metab Screen Negative U Cannabinoids Screen Positive H 11/11/16 11/11/16 11/12/16 15:38 18:07 02:11 WBC 7.1 D RBC 4.48 Hgb 14.4 Hct 40.3 L MCV 90.0 MCH 32 MCHC 35.7 RDW 13.2 Plt Count 317 MPV 9.8 Neut % (Auto) 44.5 Lymph % (Auto) 40.3 Dare % (Auto) 8.3 Eos % (Auto) 4.8 Baso % (Auto) 0.7 Neut # (Auto) 3.1 Lymph # (Auto) 2.9 Dare # (Auto) 0.6 Eos # (Auto) 0.3 Baso # (Auto) 0.1 Immature Gran % 1.4 Nucleated RBC % 0.0 Immature Gran # 0.10 Nucleated RBCs # 0.00 Immature Plt Fraction 0.0 INR PT Patient/Control Mix Circ Anticoag PTT Sodium Potassium Chloride Carbon Dioxide Anion Gap BUN Creatinine GFR Calculation BUN/Creatinine Ratio Glucose Hemoglobin A1c Calculated Osmolality Calcium Magnesium Total Bilirubin AST ALT Alkaline Phosphatase Total Creatine Kinase 141 CK-MB (CK-2) < 1.0 Troponin I < 0.015 < 0.015 B-Natriuretic Peptide Total Protein Albumin Globulin Albumin/Globulin Ratio Triglycerides Cholesterol LDL Cholesterol VLDL Cholesterol HDL Cholesterol Heart Disease Risk Ratio TSH 3rd Generation Urine Color Urine Appearance Urine pH Ur Specific [place] Urine Protein Urine Glucose (UA) Urine Ketones Urine Blood Urine Nitrate Urine Bilirubin Urine Urobilinogen Urine Leukocytes Urine RBC Urine WBC Urine Mucus Ur Culture Indicated? Urine Opiates Screen Ur Barbiturates Screen Ur Phencyclidine Scrn U Amphetamine/Methamph U Benzodiazepines Scrn U Cocaine Metab Screen U Cannabinoids Screen 11/12/16 11/12/16 11/12/16 02:11 02:11 02:11 WBC RBC Hgb Hct MCV MCH MCHC RDW Plt Count MPV Neut % (Auto) Lymph % (Auto) Dare % (Auto) Eos % (Auto) Baso % (Auto) Neut # (Auto) Lymph # (Auto) Dare # (Auto) Eos # (Auto) Baso # (Auto) Immature Gran % Nucleated RBC % Immature Gran # Nucleated RBCs # Immature Plt Fraction INR PT Patient/Control Mix Circ Anticoag PTT Sodium 139 Potassium 4.2 Chloride 105 Carbon Dioxide 29 Anion Gap 9.2 BUN 14 Creatinine 1.00 GFR Calculation 107 BUN/Creatinine Ratio 14.00 Glucose 111 H Hemoglobin A1c 5.2 Calculated Osmolality 278.5 Calcium 9.0 Magnesium 1.9 Total Bilirubin AST ALT Alkaline Phosphatase Total Creatine Kinase CK-MB (CK-2) Troponin I B-Natriuretic Peptide 18 Total Protein Albumin Globulin Albumin/Globulin Ratio Triglycerides 423 H Cholesterol 273 H LDL Cholesterol 170.0 VLDL Cholesterol 84.6 HDL Cholesterol 38 L Heart Disease Risk Ratio 7.18 TSH 3rd Generation 0.726 Urine Color Urine Appearance Urine pH Ur Specific [place] Urine Protein Urine Glucose (UA) Urine Ketones Urine Blood Urine Nitrate Urine Bilirubin Urine Urobilinogen Urine Leukocytes Urine RBC Urine WBC Urine Mucus Ur Culture Indicated? Urine Opiates Screen Ur Barbiturates Screen Ur Phencyclidine Scrn U Amphetamine/Methamph U Benzodiazepines Scrn U Cocaine Metab Screen U Cannabinoids Screen 11/12/16 11/12/16 02:11 02:11 WBC RBC Hgb Hct MCV MCH MCHC RDW Plt Count MPV Neut % (Auto) Lymph % (Auto) Dare % (Auto) Eos % (Auto) Baso % (Auto) Neut # (Auto) Lymph # (Auto) Dare # (Auto) Eos # (Auto) Baso # (Auto) Immature Gran % Nucleated RBC % Immature Gran # Nucleated RBCs # Immature Plt Fraction INR PT Patient/Control Mix Circ Anticoag PTT Sodium Potassium Chloride Carbon Dioxide Anion Gap BUN Creatinine GFR Calculation BUN/Creatinine Ratio Glucose Hemoglobin A1c Calculated Osmolality Calcium Magnesium Total Bilirubin AST ALT Alkaline Phosphatase Total Creatine Kinase 109 D 111 CK-MB (CK-2) 1.1 < 1.0 Troponin I < 0.015 < 0.015 B-Natriuretic Peptide Total Protein Albumin Globulin Albumin/Globulin Ratio Triglycerides Cholesterol LDL Cholesterol VLDL Cholesterol HDL Cholesterol Heart Disease Risk Ratio TSH 3rd Generation Urine Color Urine Appearance Urine pH Ur Specific [place] Urine Protein Urine Glucose (UA) Urine Ketones Urine Blood Urine Nitrate Urine Bilirubin Urine Urobilinogen Urine Leukocytes Urine RBC Urine WBC Urine Mucus Ur Culture Indicated? Urine Opiates Screen Ur Barbiturates Screen Ur Phencyclidine Scrn U Amphetamine/Methamph U Benzodiazepines Scrn U Cocaine Metab Screen U Cannabinoids Screen - EKG EKG results: interpreted by me, sinus rhythm EKG shows: bradycardia
[2016-11-12] MEDS ORDERED: ISOSORBIDE MONONITRATE 30 MG TABLET PO SCH (10:30)
--- NOTE | 2016-11-12 10:44 | Fluoroscopy Report ---
[place] barium swallow GI Indication: Dysphagia and atypical chest pain. History of coronary stents. Barium swallow and upper GI: 3.0 minutes fluoroscopy time. 58 total captured images. 13 mm barium tablet hangs up in the distal esophagus where a relatively long segment stricture is noted on barium swallow. Primary peristaltic activity and stripping to the level of the stricture is within normal limits. No tertiary contractions are seen above the level of the stricture. The stricture length is approximately 5-8 cm extending to the GE junction. No hiatal hernia is shown. The mucosal characteristics of the stomach are within normal limits. The gastric pylorus and first segment duodenum are unremarkable. No ulceration identified. No evidence of malrotation or volvulus. Impression: Distal esophageal stricture. PROCEDURE INTERPRETED AT [facility] DEPARTMENT OF RADIOLOGY Final Report Signed by: Dre Wade M.D.
[2016-11-12] MEDS ORDERED: BISACODYL 5 MG TABLET PO ONE (10:54)
[2016-11-12] MEDS: SUCRALFATE 1 GM/10 ML UDCUP PO SCH ×2 (11:02→11:19)
[2016-11-12] MEDS: NICOTINE 21 MG/24 HR PATCH TRANSDERM SCH (11:19)
[2016-11-12] MEDS: PANTOPRAZOLE 40 MG TABLET PO SCH (11:20)
[2016-11-12] MEDS: CAPTOPRIL 12.5 MG TABLET PO SCH (11:23)
[2016-11-12] MEDS: HYOSCYAMINE 0.125 MG TABLET SL SCH (11:30)
[2016-11-12 11:43] VITALS: BP 132/92
--- NOTE | 2016-11-12 11:44 | Discharge Summary ---
Hospital Course - Hospital Course Hospital Course: Patient is a 46-year-old white male admitted for evaluation of chest pain. Patient has a known history of coronary artery disease including previous acute myocardial infarction and stent revascularization procedures. Acute myocardial infarction ruled out this hospital stay. Patient's EKG did not disclose acute ischemic changes. June 2016 left heart catheterization did not disclose any coronary artery disease amenable to further intervention. Medical management recommended including aspirin, beta-arjun, MAJOR inhibitor, and statin therapy. Patient agrees to discontinue cigarette and marijuana smoking and to comply with recommended medication use. Patient is wearing topical nicotine replacement therapy. Hemoglobin A1c measured 5.2%. Fasting total cholesterol 273, LDL 170, HDL 38. Lipitor 80 mg prescribed every evening. Patient also has a history of GERD. Antireflux behavior and diet maneuvers reviewed. Patient also receives Carafate slurry with nexium twice daily. Barium swallow completed on the morning of hospital discharge today demonstrated distal esophageal stricture. Stricture length is approximately 5-8 cm extending to the GE junction. Primary peristalsis to the level of the stricture is within normal limits. No tertiary contractions are seen above the level of the stricture. Follow-up is to be arranged with consulting media buyer and corn breeder to confirm plan to discontinue antiplatelet therapy a minimum of 4 days prior to esophageal dilation procedure. - Time spent with patient Time with patient DS: Greater than 30 minutes Time spent discussing smoking cessation with patient: 3 to 10 minutes Diagnosis - Discharge Diagnosis (1) Chest pain Status: Chronic Specialty Discharge - Follow Up or Referrals Follow up with: Arsh Nelson MD [Physician] - 1 Week Steven Hadley MD [Physician] - 2 Weeks Discharge Plan - Discharge Data Condition at Discharge: Stable Discharge Diet: heart healthy, other (Chew foods well to improve ability to swallow) Activity: resume usual activities as tolerated Hygiene: no restrictions Weight Bearing at Discharge: full weight bearing Contact your physician if you experience:: fever over 101, Shortness of breath - Discharge Medications No Action RX: Clopidogrel [Plavix] 75 mg PO DAILY RX: Aspirin [Ecotrin] 81 mg PO DAILY RX: Captopril [Capoten] 12.5 mg PO TID #45 tablet RX: Atorvastatin [Lipitor] 40 mg PO BEDTIME #30 tablet RX: Carvedilol [Coreg] 3.125 mg PO DAILY - Follow Up or Referral - Forms/Instructions Exam - Constitutional Vitals: Period Temp Pulse Resp BP Sys/Buchanan Pulse Ox Last 24 Hr 97.3 F-98.1 F 50-64 16-20 96-136/50-86 97-99 General appearance: normal weight - Head Head exam: Present: normal inspection - Eye Eye exam: Present: EOMI - ENT ENT exam: Present: normal exam - Neck Neck exam: Present: normal inspection. Absent: meningismus - Respiratory Respiratory exam: Present: clear to auscultation bilaterally. Absent: chest wall tenderness, rales, wheezes - Cardiovascular Cardiovascular exam: Present: regular rate and rhythm. Absent: carotid bruit - GI/Abdominal GI/Abdominal exam: Present: normal bowel sounds, soft. Absent: tenderness, rebound - Extremities Exam Extremities exam: Absent: calf tenderness, edema - Neurological Exam Neurological exam: Present: alert, oriented X3, normal gait - Psychiatric Psychiatric exam: Present: normal affect, normal mood - Skin Skin exam: Present: normal color, warm, dry. Absent: rash Discharge Results Procedures and tests throughout hospitalization: Pending Orders 11/13/16 04:00 Basic Metabolic Panel IN AM Comp Blood Count Auto Diff IN AM Labs on day of discharge: Labs from last 24 hours 11/12/16 11/12/16 11/12/16 02:11 02:11 02:11 WBC RBC Hgb Hct MCV MCH MCHC RDW Plt Count MPV Neut % (Auto) Lymph % (Auto) [place] % (Auto) Eos % (Auto) Baso % (Auto) Neut # (Auto) Lymph # (Auto) [place] # (Auto) Eos # (Auto) Baso # (Auto) Immature Gran % Nucleated RBC % Immature Gran # Nucleated RBCs # Immature Plt Fraction INR PT Patient/Control Mix Circ Anticoag PTT Sodium Potassium Chloride Carbon Dioxide Anion Gap BUN Creatinine GFR Calculation BUN/Creatinine Ratio Glucose Hemoglobin A1c 5.2 Calculated Osmolality Calcium Magnesium Total Bilirubin AST ALT Alkaline Phosphatase Total Creatine Kinase 111 109 D CK-MB (CK-2) < 1.0 1.1 Troponin I < 0.015 < 0.015 B-Natriuretic Peptide Total Protein Albumin Globulin Albumin/Globulin Ratio Triglycerides Cholesterol LDL Cholesterol VLDL Cholesterol HDL Cholesterol Heart Disease Risk Ratio TSH 3rd Generation Urine Color Urine Appearance Urine pH Ur Specific [place] Urine Protein Urine Glucose (UA) Urine Ketones Urine Blood Urine Nitrate Urine Bilirubin Urine Urobilinogen Urine Leukocytes Urine RBC Urine WBC Urine Mucus Ur Culture Indicated? Urine Opiates Screen Ur Barbiturates Screen Ur Phencyclidine Scrn U Amphetamine/Methamph U Benzodiazepines Scrn U Cocaine Metab Screen U Cannabinoids Screen 11/12/16 11/12/16 11/12/16 02:11 02:11 02:11 WBC 7.1 D RBC 4.48 Hgb 14.4 Hct 40.3 L MCV 90.0 MCH 32 MCHC 35.7 RDW 13.2 Plt Count 317 MPV 9.8 Neut % (Auto) 44.5 Lymph % (Auto) 40.3 [place] % (Auto) 8.3 Eos % (Auto) 4.8 Baso % (Auto) 0.7 Neut # (Auto) 3.1 Lymph # (Auto) 2.9 [place] # (Auto) 0.6 Eos # (Auto) 0.3 Baso # (Auto) 0.1 Immature Gran % 1.4 Nucleated RBC % 0.0 Immature Gran # 0.10 Nucleated RBCs # 0.00 Immature Plt Fraction 0.0 INR PT Patient/Control Mix Circ Anticoag PTT Sodium 139 Potassium 4.2 Chloride 105 Carbon Dioxide 29 Anion Gap 9.2 BUN 14 Creatinine 1.00 GFR Calculation 107 BUN/Creatinine Ratio 14.00 Glucose 111 H Hemoglobin A1c Calculated Osmolality 278.5 Calcium 9.0 Magnesium 1.9 Total Bilirubin AST ALT Alkaline Phosphatase Total Creatine Kinase CK-MB (CK-2) Troponin I B-Natriuretic Peptide 18 Total Protein Albumin Globulin Albumin/Globulin Ratio Triglycerides 423 H Cholesterol 273 H LDL Cholesterol 170.0 VLDL Cholesterol 84.6 HDL Cholesterol 38 L Heart Disease Risk Ratio 7.18 TSH 3rd Generation 0.726 Urine Color Urine Appearance Urine pH Ur Specific [place] Urine Protein Urine Glucose (UA) Urine Ketones Urine Blood Urine Nitrate Urine Bilirubin Urine Urobilinogen Urine Leukocytes Urine RBC Urine WBC Urine Mucus Ur Culture Indicated? Urine Opiates Screen Ur Barbiturates Screen Ur Phencyclidine Scrn U Amphetamine/Methamph U Benzodiazepines Scrn U Cocaine Metab Screen U Cannabinoids Screen 11/11/16 11/11/16 11/11/16 18:07 15:38 11:53 WBC RBC Hgb Hct MCV MCH MCHC RDW Plt Count MPV Neut % (Auto) Lymph % (Auto) [place] % (Auto) Eos % (Auto) Baso % (Auto) Neut # (Auto) Lymph # (Auto) [place] # (Auto) Eos # (Auto) Baso # (Auto) Immature Gran % Nucleated RBC % Immature Gran # Nucleated RBCs # Immature Plt Fraction INR PT Patient/Control Mix Circ Anticoag PTT Sodium Potassium Chloride Carbon Dioxide Anion Gap BUN Creatinine GFR Calculation BUN/Creatinine Ratio Glucose Hemoglobin A1c Calculated Osmolality Calcium Magnesium Total Bilirubin AST ALT Alkaline Phosphatase Total Creatine Kinase 141 CK-MB (CK-2) < 1.0 Troponin I < 0.015 < 0.015 B-Natriuretic Peptide Total Protein Albumin Globulin Albumin/Globulin Ratio Triglycerides Cholesterol LDL Cholesterol VLDL Cholesterol HDL Cholesterol Heart Disease Risk Ratio TSH 3rd Generation Urine Color Urine Appearance Urine pH Ur Specific [place] Urine Protein Urine Glucose (UA) Urine Ketones Urine Blood Urine Nitrate Urine Bilirubin Urine Urobilinogen Urine Leukocytes Urine RBC Urine WBC Urine Mucus Ur Culture Indicated? Urine Opiates Screen Negative Ur Barbiturates Screen Negative Ur Phencyclidine Scrn Negative U Amphetamine/Methamph Negative U Benzodiazepines Scrn Negative U Cocaine Metab Screen Negative U Cannabinoids Screen Positive H 11/11/16 11/11/16 11/11/16 11:48 11:40 11:40 WBC 10.4 RBC 4.84 Hgb 15.6 Hct 43.2 MCV 89.3 MCH 32 MCHC 36.1 H RDW 13.2 Plt Count 361 MPV 9.5 L Neut % (Auto) 64.9 Lymph % (Auto) 23.4 [place] % (Auto) 7.5 Eos % (Auto) 2.0 Baso % (Auto) 0.8 Neut # (Auto) 6.7 Lymph # (Auto) 2.4 [place] # (Auto) 0.8 Eos # (Auto) 0.2 Baso # (Auto) 0.1 Immature Gran % 1.4 Nucleated RBC % 0.0 Immature Gran # 0.15 Nucleated RBCs # 0.00 Immature Plt Fraction 0.0 INR PT Patient/Control Mix Circ Anticoag PTT Sodium 135 L Potassium 4.3 Chloride 101 Carbon Dioxide 25 Anion Gap 13.3 BUN 10 Creatinine 1.20 GFR Calculation 78 BUN/Creatinine Ratio 8.00 Glucose 111 H Hemoglobin A1c Calculated Osmolality 269.1 L Calcium 9.8 Magnesium Total Bilirubin 0.60 AST 19 ALT 24 Alkaline Phosphatase 79 Total Creatine Kinase CK-MB (CK-2) Troponin I < 0.015 B-Natriuretic Peptide Total Protein 7.5 Albumin 4.2 Globulin 3.3 Albumin/Globulin Ratio 1.2 Triglycerides Cholesterol LDL Cholesterol VLDL Cholesterol HDL Cholesterol Heart Disease Risk Ratio TSH 3rd Generation Urine Color Urine Appearance Urine pH Ur Specific [place] Urine Protein Urine Glucose (UA) Urine Ketones Urine Blood Urine Nitrate Urine Bilirubin Urine Urobilinogen Urine Leukocytes Urine RBC Urine WBC Urine Mucus Ur Culture Indicated? Urine Opiates Screen Ur Barbiturates Screen Ur Phencyclidine Scrn U Amphetamine/Methamph U Benzodiazepines Scrn U Cocaine Metab Screen U Cannabinoids Screen 11/11/16 11/11/16 11:40 03:40 WBC RBC Hgb Hct MCV MCH MCHC RDW Plt Count MPV Neut % (Auto) Lymph % (Auto) [place] % (Auto) Eos % (Auto) Baso % (Auto) Neut # (Auto) Lymph # (Auto) [place] # (Auto) Eos # (Auto) Baso # (Auto) Immature Gran % Nucleated RBC % Immature Gran # Nucleated RBCs # Immature Plt Fraction INR 0.9 PT Patient/Control Mix 9.7 Circ Anticoag PTT 29.0 Sodium Potassium Chloride Carbon Dioxide Anion Gap BUN Creatinine GFR Calculation BUN/Creatinine Ratio Glucose Hemoglobin A1c Calculated Osmolality Calcium Magnesium Total Bilirubin AST ALT Alkaline Phosphatase Total Creatine Kinase CK-MB (CK-2) Troponin I B-Natriuretic Peptide Total Protein Albumin Globulin Albumin/Globulin Ratio Triglycerides Cholesterol LDL Cholesterol VLDL Cholesterol HDL Cholesterol Heart Disease Risk Ratio TSH 3rd Generation Urine Color Yellow Urine Appearance Clear Urine pH 6.0 Ur Specific [place] 1.021 Urine Protein Negative Urine Glucose (UA) Negative Urine Ketones Negative Urine Blood Negative Urine Nitrate Negative Urine Bilirubin Negative Urine Urobilinogen < 2.0 H Urine Leukocytes Negative Urine RBC <1 Urine WBC <1 Urine Mucus Occasional Ur Culture Indicated? Not indicated Urine Opiates Screen Ur Barbiturates Screen Ur Phencyclidine Scrn U Amphetamine/Methamph U Benzodiazepines Scrn U Cocaine Metab Screen U Cannabinoids Screen - Additional Comments [place] barium swallow GI Indication: Dysphagia and atypical chest pain. History of coronary stents. Barium swallow and upper GI: 3.0 minutes fluoroscopy time. 58 total captured images. 13 mm barium tablet hangs up in the distal esophagus where a relatively long segment stricture is noted on barium swallow. Primary peristaltic activity and stripping to the level of the stricture is within normal limits. No tertiary contractions are seen above the level of the stricture. The stricture length is approximately 5-8 cm extending to the GE junction. No hiatal hernia is shown. The mucosal characteristics of the stomach are within normal limits. The gastric pylorus and first segment duodenum are unremarkable. No ulceration identified. No evidence of malrotation or volvulus. Impression: Distal esophageal stricture. DS: Provider Date of admission: 11/11/16 13:26 Primary care physician: . No PCP Attending physician on admission: Deyanira Manzo MD Consults: 11/11/16 15:58 Consult to Physician [CONS] Routine Comment: Consulting Provider: Arsh Nelson Person Notified: Rosy Date Notified: 11/11/16 Time Notified: 16:33 11/11/16 18:02 Consult to Physician [CONS] Routine Comment: Consulting Provider: Steven Hadley Consulting Provider Notified: Yes When should Consulting Provider be notified: In am Consult to Specialist Group: Gastroenterology Person Notified: STARR Date Notified: 11/12/16 Time Notified: 07:45 Consult Notification Comment: Man with coronary disease with severe chest pain today with nausea and vomiting who has dysphagia, odynophagia, and severe GE reflux. So far his enzymes were negative. If they remain negative, I would ask you to consider doing an E scope and dilatation. I am holding his Plavix after today's dose which he already took before he came in. Thank you Discharging clinician: Elijah Blake III
== END 2016-11-12 14:00 | disposition home or self-care (01) ==
LOC: N.EDINP 11:21 → N.ED 11:21 → SUATTDRO 13:26 → N.TELES 16:09
PROVIDERS: ADMIT Family Medicine; ATTEND Internal Medicine

== ENCOUNTER 2017-01-30 09:21 | Inpatient (IN) ==
[2017-01-30] MEDS ORDERED: ENOXAPARIN 80 MG/0.8 ML SYRINGE SUBCUT ONE (09:30)
[2017-01-30] MEDS ORDERED: ONDANSETRON 4 MG/2 ML VIAL ONE (09:30)
[2017-01-30] MEDS ORDERED: MORPHINE 2 MG/1 ML SYRINGE ONE ×2 (09:31)
[2017-01-30] MEDS ORDERED: HEPARIN 5,000 UNIT/1 ML VIAL ONE (09:31)
[2017-01-30] MEDS ORDERED: HEPARIN 5,000 UNIT/1 ML VIAL IV STA (09:34)
[2017-01-30] MEDS ORDERED: LIDOCAINE 1% 20 ML VIAL ONE (09:34)
[2017-01-30] MEDS ORDERED: fentaNYL 100 MCG/2 ML VIAL ONE (09:34)
[2017-01-30] MEDS ORDERED: MORPHINE 2 MG/1 ML SYRINGE IV ONE ×2 (09:34→18:34)
[2017-01-30] MEDS ORDERED: MIDAZOLAM 2 MG/2 ML VIAL ONE (09:34)
[2017-01-30] MEDS ORDERED: ONDANSETRON 4 MG/2 ML VIAL IV STA (09:34)
[2017-01-30] MEDS ORDERED: MORPHINE 2 MG/1 ML SYRINGE IV STA (09:34)
[2017-01-30] MEDS ORDERED: NITROGLYCERIN 2% OINT 1 INCH/GM PACK TOP STA (09:34)
[2017-01-30] MEDS ORDERED: ASPIRIN 325 MG TABLET PO STA (09:34)
[2017-01-30] MEDS ORDERED: TIROFIBAN 5,000 MCG/100 ML PREMIX IV ONE ×2 (09:51→13:16)
[2017-01-30] MEDS ORDERED: diphenhydrAMINE 50 MG/1 ML VIAL ONE ×2 (09:54→09:57)
[2017-01-30] MEDS ORDERED: HYDROmorphone 2 MG/1 ML VIAL ONE (09:59)
[2017-01-30 10:04] LABS: Basophils # 0.1 10*3/uL (0.0-0.2); Basophils % 0.7 % (0.0-0.8); Eosinophils # 0.1 10*3/uL (0.0-0.87); Eosinophils % 1.3 % (0.00-10.9); Hematocrit 37.6 VOL% (42.0-52.0); Hemoglobin 13.8 GM/DL (14.0-18.0); Immature Granulocytes % 1.1 %; Immature Granulocytes Absolute 0.09 #; Lymphocytes # 2.4 10*3/uL (1.4-4.0); Lymphocytes % 28.8 % (21.2-54.2); Mean Corpuscular HGB Conc 36.7 GM/DL (32-36); Mean Corpuscular Hemoglobin 32 PG (27-34); Mean Corpuscular Volume 87.4 FL (87-102); Mean Platelet Volume 10.3 FL (9.6-12.0); Monocytes # 0.7 10*3/uL (0.11-0.8); Neutrophils # 5.1 10*3/uL (1.4-7.4); Neutrophils % 60.1 % (38.7-73.9); Platelet Count 349 T/CUMM (130-400); White Blood Count 8.5 T/CUMM (4-12)
[2017-01-30 10:15] LABS: INR 1.1; PT Patient Result 11.1 SECS
[2017-01-30] MEDS ORDERED: ENOXAPARIN 30 MG/0.3 ML SYRINGE ONE (10:15)
[2017-01-30] MEDS ORDERED: CLOPIDOGREL 300 MG TABLET ONE (10:22)
[2017-01-30 10:24] LABS: Partial Thromboplastin Time 99.7 SECS (0-40)
[2017-01-30] MEDS: TIROFIBAN 5,000 MCG/100 ML PREMIX IV SCH ×3 (10:30→19:53)
[2017-01-30] MEDS ORDERED: ACETAMINOPHEN 325 MG TABLET PO PRN (10:45)
[2017-01-30] MEDS ORDERED: ONDANSETRON 4 MG/2 ML VIAL IV PRN (10:45)
[2017-01-30] MEDS ORDERED: NITROGLYCERIN SL 0.4 MG TABLET SL PRN (10:45)
[2017-01-30] MEDS ORDERED: ALUMINUM/MAGNES/SIMETH MAX STR 30 ML UDCUP PO PRN (10:45)
[2017-01-30] MEDS ORDERED: ZALEPLON 5 MG CAPSULE PO PRN (10:45)
[2017-01-30] MEDS ORDERED: SODIUM CHLORIDE 0.9% 1,000 ML IV SCH (11:00)
[2017-01-30] MEDS ORDERED: ALUMINUM/MAGNES/SIMETH MAX STR 30 ML UDCUP ONE (11:03)
[2017-01-30] MEDS: CARVEDILOL 6.25 MG TABLET PO SCH ×2 (12:08→21:30)
[2017-01-30 12:14] LABS: Albumin 3.7 G/DL (3.4-5.0); Bilirubin,Total 0.7 MG/DL (0.2-1.0); Calcium 8.9 MG/DL (8.5-10.1); Osmolality,Calculated 277.4 MOS/KG (273-304); Total Protein 6.4 G/DL (6.4-8.3)
[2017-01-30 12:26] LABS: CKMB % 7.2 %
[2017-01-30 12:28] LABS: Troponin I Only 3.96 NG/ML (0.00-0.045)
[2017-01-30] MEDS: LISINOPRIL 2.5 MG TABLET PO SCH (15:28)
[2017-01-30] MEDS ORDERED: LORazepam 2 MG/1 ML VIAL IV PRN (18:35)
[2017-01-30] MEDS: ATORVASTATIN 40 MG TABLET PO SCH (21:31)
[2017-01-31 05:41] LABS: Basophils % 0.4 % (0.0-0.8); Eosinophils # 0.2 10*3/uL (0.0-0.87); Eosinophils % 1.5 % (0.00-10.9); Hematocrit 37.6 VOL% (42.0-52.0); Hemoglobin 13.3 GM/DL (14.0-18.0); Immature Granulocytes % 0.5 %; Immature Granulocytes Absolute 0.05 #; Lymphocytes # 2.3 10*3/uL (1.4-4.0); Lymphocytes % 22.6 % (21.2-54.2); Mean Corpuscular HGB Conc 35.4 GM/DL (32-36); Mean Corpuscular Hemoglobin 32 PG (27-34); Mean Corpuscular Volume 89.3 FL (87-102); Mean Platelet Volume 10.3 FL (9.6-12.0); Monocytes # 0.9 10*3/uL (0.11-0.8); Monocytes % 9.2 % (1.7-12.7); Neutrophils # 6.6 10*3/uL (1.4-7.4); Neutrophils % 65.8 % (38.7-73.9); Platelet Count 299 T/CUMM (130-400); Red Blood Count 4.21 MC/CUMM (3.8-5.5)
[2017-01-31 06:17] LABS: Calcium 8.4 MG/DL (8.5-10.1); Magnesium 1.9 MG/DL (1.8-2.4)
[2017-01-31 06:18] LABS: Osmolality,Calculated 275.4 MOS/KG (273-304)
[2017-01-31 06:53] LABS: Calcium 8.2 MG/DL (8.5-10.1); Osmolality,Calculated 280.1 MOS/KG (273-304); Risk Ratio 3.74; VLDL CHOLESTEROL 37.4 MG/DL
[2017-01-31 07:59] LABS: CKMB % 7.3 %
[2017-01-31 08:01] LABS: Troponin I Only 10.4 NG/ML (0.00-0.045)
[2017-01-31] MEDS: CLOPIDOGREL 75 MG TABLET PO SCH (09:00)
[2017-01-31] MEDS: ASPIRIN EC 81 MG TABLET PO SCH (09:00)
[2017-01-31] MEDS: LISINOPRIL 2.5 MG TABLET PO SCH (09:00)
[2017-01-31] MEDS: CARVEDILOL 3.125 MG TABLET PO SCH ×2 (09:00→20:55)
[2017-01-31] MEDS: PANTOPRAZOLE 40 MG TABLET PO SCH (09:00)
[2017-01-31] MEDS: LISINOPRIL 5 MG TABLET PO SCH (09:25)
[2017-01-31 12:28] LABS: Barbiturates Screen,Urine Negative (Negative); Benzodiazepines Screen,Urine Negative (Negative); Cannabinoid Screen,Urine Positive (Negative); Opiate Screen,Urine Positive (Negative); Phencyclidine Screen,Urine Negative (Negative)
[2017-01-31] MEDS: ATORVASTATIN 40 MG TABLET PO SCH (20:55)
[2017-02-01 04:55] LABS: Basophils # 0.1 10*3/uL (0.0-0.2); Basophils % 0.8 % (0.0-0.8); Eosinophils # 0.2 10*3/uL (0.0-0.87); Eosinophils % 2.5 % (0.00-10.9); Hematocrit 38.7 VOL% (42.0-52.0); Hemoglobin 13.8 GM/DL (14.0-18.0); Immature Granulocytes % 0.8 %; Immature Granulocytes Absolute 0.07 #; Lymphocytes # 2.8 10*3/uL (1.4-4.0); Lymphocytes % 33.1 % (21.2-54.2); Mean Corpuscular HGB Conc 35.7 GM/DL (32-36); Mean Corpuscular Hemoglobin 32 PG (27-34); Mean Corpuscular Volume 89.4 FL (87-102); Mean Platelet Volume 10.5 FL (9.6-12.0); Monocytes # 0.8 10*3/uL (0.11-0.8); Monocytes % 9.7 % (1.7-12.7); Neutrophils # 4.5 10*3/uL (1.4-7.4); Neutrophils % 53.1 % (38.7-73.9); Platelet Count 316 T/CUMM (130-400); Red Blood Count 4.33 MC/CUMM (3.8-5.5); Red Cell Distribution Width 13.9 % (9.3-17.3); White Blood Count 8.5 T/CUMM (4-12)
[2017-02-01 05:34] LABS: CKMB % 3.8 %; Calcium 8.4 MG/DL (8.5-10.1); Potassium 3.7 MMOL/L (3.5-5.1)
[2017-02-01 06:15] LABS: Troponin I Only 4.58 NG/ML (0.00-0.045)
[2017-02-01] MEDS: PANTOPRAZOLE 40 MG TABLET PO SCH (08:45)
[2017-02-01] MEDS: LISINOPRIL 5 MG TABLET PO SCH (08:45)
[2017-02-01] MEDS: CARVEDILOL 3.125 MG TABLET PO SCH (08:46)
[2017-02-01] MEDS: ASPIRIN EC 81 MG TABLET PO SCH (08:46)
[2017-02-01] MEDS: CLOPIDOGREL 75 MG TABLET PO SCH (08:46)
[2017-02-01 12:15] VITALS: BP 111/65
== END 2017-02-01 12:30 | disposition home or self-care (01) | DRG 247 ==
LOC: EDUNIT# → EDBD → N.ED 09:21 → N.CL 09:33 → N.ICU 10:45 → N.TELEN 01-31 18:51
PROVIDERS: ADMIT Internal Medicine Cardiovascular Disease; ATTEND Internal Medicine Cardiovascular Disease
PROC: CLCCHCL (ICD-10-PCS; 2017-01-30 10:45)

== ENCOUNTER 2018-12-28 23:32 | Inpatient (IN) ==
[2018-12-28] MEDS ORDERED: MORPHINE 4 MG/1 ML VIAL IV STA (23:43)
[2018-12-28] MEDS ORDERED: ENOXAPARIN 30 MG/0.3 ML SYRINGE IV STA (23:43)
[2018-12-28] MEDS ORDERED: ONDANSETRON 4 MG/2 ML VIAL IV STA (23:43)
[2018-12-28] MEDS ORDERED: NITROGLYCERIN 2% OINT 1 INCH/GM PACK TOP STA (23:43)
[2018-12-28] MEDS ORDERED: ASPIRIN 325 MG TABLET PO STA (23:43)
[2018-12-28] MEDS ORDERED: fentaNYL 100 MCG/2 ML VIAL ONE (23:48)
[2018-12-28] MEDS ORDERED: LIDOCAINE 1% 20 ML VIAL ONE (23:48)
[2018-12-28] MEDS ORDERED: MIDAZOLAM 2 MG/2 ML VIAL ONE (23:48)
[2018-12-28] MEDS ORDERED: ENOXAPARIN 40 MG/0.4 ML SYRINGE SUBCUT STA (23:51)
[2018-12-28 23:55] LABS: Basophils # 0.1 10*3/uL (0.0-0.2); Basophils % 0.4 % (0.0-0.8); Eosinophils # 0.3 10*3/uL (0.0-0.87); Eosinophils % 1.8 % (0.00-10.9); Hematocrit 36.1 VOL% (42.0-52.0); Hemoglobin 12.8 GM/DL (14.0-18.0); Immature Granulocytes % 1.1 %; Immature Granulocytes Absolute 0.18 #; Lymphocytes # 1.9 10*3/uL (1.4-4.0); Mean Corpuscular HGB Conc 35.5 GM/DL (32-36); Mean Corpuscular Volume 85.5 FL (87-102); Mean Platelet Volume 9.9 FL (9.6-12.0); Neutrophils % 77.7 % (38.7-73.9); Platelet Count 343 T/CUMM (130-400); Red Blood Count 4.22 MC/CUMM (3.8-5.5); Red Cell Distribution Width 13.2 % (9.3-17.3)
[2018-12-29 00:04] LABS: PT Patient Result 10.4 SECS (9.6-12.2)
[2018-12-29 00:15] LABS: Albumin 3.8 G/DL (3.4-5.0); Bilirubin,Total 0.8 MG/DL (0.2-1.0); Calcium 9.3 MG/DL (8.5-10.1); Osmolality,Calculated 279.5 MOS/KG (273-304); Total Protein 7.2 G/DL (6.4-8.3)
[2018-12-29] MEDS ORDERED: TIROFIBAN 5,000 MCG/100 ML PREMIX IV SCH (00:40)
[2018-12-29] MEDS ORDERED: CLOPIDOGREL 300 MG TABLET ONE (00:52)
[2018-12-29] MEDS ORDERED: TIROFIBAN 5,000 MCG/100 ML PREMIX IV ONE (00:52)
[2018-12-29] MEDS ORDERED: ACETAMINOPHEN 325 MG TABLET PO PRN (00:54)
[2018-12-29] MEDS ORDERED: ONDANSETRON 4 MG/2 ML VIAL IV PRN (00:54)
[2018-12-29] MEDS ORDERED: ZALEPLON 5 MG CAPSULE PO PRN (00:54)
[2018-12-29] MEDS ORDERED: NITROGLYCERIN SL 0.4 MG TABLET SL PRN (00:54)
[2018-12-29] MEDS ORDERED: SODIUM CHLORIDE 0.9% 1,000 ML IV SCH (01:00)
[2018-12-29 05:12] LABS: Basophils # 0.1 10*3/uL (0.0-0.2); Basophils % 0.5 % (0.0-0.8); Eosinophils # 0.1 10*3/uL (0.0-0.87); Eosinophils % 1.1 % (0.00-10.9); Hemoglobin 12.3 GM/DL (14.0-18.0); Immature Granulocytes % 0.8 %; Immature Granulocytes Absolute 0.08 #; Lymphocytes # 1.5 10*3/uL (1.4-4.0); Lymphocytes % 14.6 % (21.2-54.2); Mean Corpuscular HGB Conc 34.2 GM/DL (32-36); Mean Corpuscular Volume 89.1 FL (87-102); Monocytes % 11.4 % (1.7-12.7); Neutrophils % 71.6 % (38.7-73.9); Platelet Count 316 T/CUMM (130-400); Red Blood Count 4.04 MC/CUMM (3.8-5.5); Red Cell Distribution Width 13.3 % (9.3-17.3)
[2018-12-29 06:11] LABS: Osmolality,Calculated 280.4 MOS/KG (273-304); Risk Ratio 2.64; VLDL CHOLESTEROL 17.2 MG/DL
[2018-12-29 06:15] LABS: Troponin I 6.72 NG/ML (0.00-0.045)
[2018-12-29 06:24] LABS: Calcium 8.2 MG/DL (8.5-10.1)
[2018-12-29 08:21] LABS: Apearance,Urine CLEAR (Clear); Bilirubin,Urine Negative (Negative); Blood, Urine Negative (Negative); Glucose,Urine (UA) Negative (Negative); Ketones,Urine 5 mg/dL (Negative); Mucus,Urine Many /LPF (Occasional); Nitrite,Urine Negative (Negative); Protein,Urine Negative; RBC,Urine 4 /HPF (0-4); Urine Color Yellow (Yellow); Urine Specific Gravity > 1.060 (1.001-1.035); Urine Urobilinogen < 2.0 EU/DL (0.2-1.0)
[2018-12-29 08:22] LABS: Barbiturates Screen,Urine Negative (Negative); Benzodiazepines Screen,Urine Positive (Negative); Cannabinoid Screen,Urine Positive (Negative); Opiate Screen,Urine Positive (Negative); Phencyclidine Screen,Urine Negative (Negative)
[2018-12-29] MEDS ORDERED: ASPIRIN 325 MG TABLET PO SCH (09:00)
[2018-12-29] MEDS: PANTOPRAZOLE 40 MG TABLET PO SCH (09:47)
[2018-12-29] MEDS: carvediloL 6.25 MG TABLET PO SCH ×3 (09:47→21:13)
[2018-12-29] MEDS: LISINOPRIL 2.5 MG TABLET PO SCH (09:47)
[2018-12-29] MEDS: ISOSORBIDE MONONITRATE 30 MG TABLET PO SCH (11:30)
[2018-12-29] MEDS: FUROSEMIDE 20 MG TABLET PO SCH (11:30)
[2018-12-29] MEDS: ATORVASTATIN 40 MG TABLET PO SCH (21:13)
[2018-12-30] MEDS: LISINOPRIL 2.5 MG TABLET PO SCH (08:49)
[2018-12-30] MEDS: CLOPIDOGREL 75 MG TABLET PO SCH (08:49)
[2018-12-30] MEDS: carvediloL 6.25 MG TABLET PO SCH ×2 (08:50→21:12)
[2018-12-30] MEDS: FUROSEMIDE 20 MG TABLET PO SCH (08:50)
[2018-12-30] MEDS: ASPIRIN CHEW 81 MG TABLET PO SCH (08:50)
[2018-12-30] MEDS: ISOSORBIDE MONONITRATE 30 MG TABLET PO SCH (08:50)
[2018-12-30] MEDS: PANTOPRAZOLE 40 MG TABLET PO SCH (08:57)
[2018-12-30] MEDS: ATORVASTATIN 40 MG TABLET PO SCH (21:12)
[2018-12-31] MEDS: FUROSEMIDE 20 MG TABLET PO SCH (08:38)
[2018-12-31] MEDS: PANTOPRAZOLE 40 MG TABLET PO SCH (08:38)
[2018-12-31] MEDS: ISOSORBIDE MONONITRATE 30 MG TABLET PO SCH (08:38)
[2018-12-31] MEDS: ASPIRIN CHEW 81 MG TABLET PO SCH (08:38)
[2018-12-31] MEDS: carvediloL 6.25 MG TABLET PO SCH (08:38)
[2018-12-31] MEDS: LISINOPRIL 2.5 MG TABLET PO SCH (08:39)
[2018-12-31] MEDS: CLOPIDOGREL 75 MG TABLET PO SCH (08:39)
[2018-12-31 09:31] LABS: Calcium 8.8 MG/DL (8.5-10.1); Osmolality,Calculated 276.7 MOS/KG (273-304)
[2018-12-31 09:53] LABS: Basophils # 0.1 10*3/uL (0.0-0.2); Basophils % 0.9 % (0.0-0.8); Eosinophils # 0.5 10*3/uL (0.0-0.87); Eosinophils % 5.9 % (0.00-10.9); Hematocrit 37.7 VOL% (42.0-52.0); Hemoglobin 12.6 GM/DL (14.0-18.0); Immature Granulocytes % 0.8 %; Immature Granulocytes Absolute 0.06 #; Lymphocytes # 2.2 10*3/uL (1.4-4.0); Lymphocytes % 28.1 % (21.2-54.2); Mean Corpuscular HGB Conc 33.4 GM/DL (32-36); Monocytes % 13.3 % (1.7-12.7); Platelet Count 324 T/CUMM (130-400); Red Blood Count 4.19 MC/CUMM (3.8-5.5); Red Cell Distribution Width 13.8 % (9.3-17.3); White Blood Count 7.7 T/CUMM (4-12)
[2018-12-31 11:51] VITALS: BP 102/54
== END 2018-12-31 14:14 | disposition home or self-care (01) | DRG 250 ==
LOC: N.ED 23:32 → N.ICU 12-29 00:01 → N.EDINP 12-29 00:12 → N.ICU 12-29 00:53 → N.TELEN 12-29 15:31
PROVIDERS: ADMIT Internal Medicine Cardiovascular Disease; ATTEND Internal Medicine Cardiovascular Disease
PROC: CLCCHCL (ICD-10-PCS; 2018-12-29 00:15)